=== PATIENT | male | born 1960 | race Caucasian/White ===

== ENCOUNTER 2020-07-13 11:48 | Inpatient (IN) | payer BC, OTHER, SELFPAY ==
[2020-07-13] MEDS ORDERED: NA CHLORIDE 0.9% 2,000 ML ONE (12:55)
[2020-07-13] MEDS ORDERED: FENTANYL CITR 100 MCG/2 ML ONE (13:08)
[2020-07-13] MEDS ORDERED: ONDANSETRON 4 MG/2 ML VIAL ONE (13:08)
--- NOTE | 2020-07-13 13:48 | RAD REPORT ---
EXAM DESCRIPTION: RAD - Chest Single View - 07/13/2020 1:30 pm CLINICAL HISTORY: AMS Chest pain. COMPARISON: No comparisons FINDINGS: Portable technique limits examination quality. The lungs are grossly clear. The heart is normal in size. No displaced fractures. IMPRESSION: No acute intrathoracic process suspected.
[2020-07-13 14:58] LABS: Absolute Lymphocytes (CBC) 0.3 K/uL (0.7-4.9); Basophils % 0.5 % (0-1.3); Hematocrit 49.3 % (39.6-49.0); Lymphocytes % 7.5 % (15.3-44.8); MPV 9.2 fL (7.6-11.3); RBC Red Blood Cell Count 6.33 M/uL (4.33-5.43)
[2020-07-13 15:04] LABS: Protime INR 1.6
[2020-07-13 15:34] LABS: ALT/SGPT 65 U/L (12-78); AST/SGOT 165 U/L (15-37); Albumin 3.4 g/dL (3.4-5.0); Alkaline Phosphatase 179 U/L (45-117); Amylase 112 U/L (25-115); BUN Blood Urea Nitrogen 90 mg/dL (7-18); Bilirubin Direct 0.3 mg/dL (0-0.2); Bilirubin Total 0.6 mg/dL (0.2-1.0); CKMB Creatine Kinase MB 71.7 ng/mL (0.3-3.6); Creatine Phosphokinase 4303 U/L (39-308); Glucose Level 96 mg/dL (74-106); Lipase 192 U/L (73-393); Potassium 4.5 mmol/L (3.5-5.1); Protein, Total 6.7 g/dL (6.4-8.2); Sodium Level 135 mmol/L (136-145); Troponin (Emerg Dept Use Only) < 0.02 ng/mL (0.0-0.045)
[2020-07-13 15:47] LABS: Bicarbonate 13 mmol/L (21-32)
[2020-07-13 16:07] LABS: Blood Morphology Comment NOT SEEN (NOT SEEN); Platelet Estimate DECR; White Blood Cell Scan OK (OK)
--- NOTE | 2020-07-13 16:47 | RAD REPORT ---
EXAM DESCRIPTION: CT - Head C Spine Cap Wo Con - 07/13/2020 4:22 pm CLINICAL HISTORY: Trauma, head and neck injury. Chest, abdomen and pelvis pain. Low back and abdominal pain;Pain COMPARISON: No comparisons TECHNIQUE: CT head without contrast. CT cervical spine without contrast with coronal and sagittal reformatted images. CT chest, abdomen and pelvis without contrast with coronal and sagittal reformatted images of the [facility]. All CT scans are performed using dose optimization technique as appropriate and may include automated exposure control or mA/KV adjustment according to patient size. FINDINGS: CT HEAD WITHOUT CONTRAST: No intracranial hemorrhage, hydrocephalus or extra-axial fluid collection. Diffuse brain atrophy is p resent. No areas of brain edema or midline shift. The paranasal sinuses and mastoids are essentially clear. The calvarium is intact. CT CERVICAL SPINE WITHOUT CONTRAST: No fracture or subluxation. Disc thinning with prominent posterior osteophyte is noted at C5-6 and C6 -7. The prevertebral soft tissues are normal in thickness. CT CHEST, ABDOMEN, PELVIS WITHOUT CONTRAST: NOTE: Lack of contrast is a significant limitation in the assessment of trauma related findings. Spec ifically, solid organ, vascular and bowel evaluation is significantly limited. Small peripherally located at opacities are present in the left apex, right upper lobe, posterior joselyn gula and lateral left lung base.No pneumothorax or pericardial/pleural fluid. Bilateral polycystic kidneys are seen with transplant kidney in the left lower quadrant. A few mildly fluid-filled small bowel loops are seen in the central abdomen. No bowel obstruction or pneumoperito neum. No concerning pelvic findings. No fractures. IMPRESSION: Small infiltrates in the lungs as detailed could be related to infection or aspiration. Mild nonspecific fluid-filled small bowel loops could represent mild enteritis.
[2020-07-13] MEDS ORDERED: NA CHLORIDE 0.9% 1,000 ML ONE (17:35)
--- NOTE | 2020-07-13 18:24 | ER ---
Nurse's Notes [facility] Name: Oj Jones Age: 60 yrs Sex: Male : 1960 Arrival Date: 07/13/2020 Time: 11:50 Bed 19 Private MD: Diagnosis: Rhabdomyolysis;Dehydration;Weakness;Low back pain;ESRD/KIdney Transplant Presentation: 07/13 11:56 Chief complaint: EMS states: Initially called for unresponsive, pt found in bathroom on floor with a pillow and blanket, was responsive when EMS arrived, neighbor who checks on him reports that he was found on floor in bathroom approx 2 days ago and has been there since, also reported that pt had bloody diarrhea 2 days ago, pt has generalized weakness and appears to be dehydrated w/ poor skin turgor noted, HR 55-62, BP 148/88, Spo2 89% RA, improved after placed on oxygen, hx of kidney transplant in 2001, no dialysis access noted, pt oriented to person, place, and month. Coronavirus screen: Client denies travel out of the [place] in the last 14 days. At this time, the client does not indicate any symptoms associated with coronavirus-19. Ebola Screen: No symptoms or risks identified at this time. Risk Assessment: Do you want to hurt yourself or someone else? Patient reports no desire to harm self or others. Onset of symptoms was July 13, 2020. 11:56 Method Of Arrival: EMS: [facility] 12:28 Initial Sepsis Screen: Does the patient meet any 2 criteria? No. Patient's initial ph sepsis screen is negative. Does the patient have a suspected source of infection? No. Patient's initial sepsis screen is negative. 12:28 Acuity: VIVIANA 2 ph Historical: - Allergies: 12:29 No Known Allergies; ph - PMHx: 12:23 kidney transplant; ph - Immunization history:: Adult Immunizations unknown. - Social history:: Smoking status: unknown. Screenin:05 Abuse screen: Denies threats or abuse. Denies injuries from another. Nutritional ph screening: No deficits noted. Tuberculosis screening: No symptoms or risk factors identified. Fall Risk Fall in past 12 months (25 points). No secondary diagnosis (0 pts). IV access (20 points). Ambulatory Aid- None/Bed Rest/Nurse Assist (0 pts). Gait- Weak (10 pts.). Mental Status- Oriented to own ability (0 pts). Assessment: 12:56 General: Appears in no apparent distress. uncomfortable, unkempt, emaciated, Behavior ph is calm, cooperative, appropriate for age, Denies fever. Pain: Complains of pain in low back area. Neuro: Level of Consciousness is awake, alert, obeys commands, Oriented to person, place, time, situation, Validation Software Facilitator are weak bilaterally Moves all extremities. Speech is normal, Reports weakness. Cardiovascular: Denies chest pain, shortness of breath, Capillary refill < 3 seconds in bilateral fingers. Respiratory: Airway is patent Respiratory effort is even, unlabored. GI: Abdomen is non-distended, Patient currently denies abdominal pain, Parent/caregiver reports the patient having bloody diarrhea 2 days ago. EENT: Oral mucosa is dry. Absence of teeth noted - all teeth appear to be absent. Derm: Skin is intact, with poor turgor Skin is dusky, Skin temperature is cool. Musculoskeletal: Circulation, motion, and sensation intact. Range of motion: intact in all extremities. 13:56 Reassessment: Patient appears in no apparent distress at this time. Patient and/or ph family updated on plan of care and expected duration. Pain level reassessed. Patient is alert, oriented x 3, equal unlabored respirations, skin warm/dry/pink. 15:51 Reassessment: Patient appears in no apparent distress at this time. Patient and/or ph family updated on plan of care and expected duration. Pain level reassessed. Patient is alert, oriented x 3, equal unlabored respirations, skin warm/dry/pink. 20:35 Reassessment: Patient and/or family updated on plan of care and expected duration. Pain ll2 level reassessed. 07/14 00:21 Reassessment: attempted to give report, advised i'd be called back. ll2 00:51 Reassessment: report given to REBECCA Heller. ll2 Vital Signs: 07/13 12:26 BP 110 / 72; Pulse 53; Resp 18; Temp 97.5(TE); Pulse Ox 100% on R/A; Weight 86.18 kg; ph Height 6 ft. 2 in. (187.96 cm); 13:00 BP 105 / 76; Pulse 51; Resp 18; Pulse Ox 100% on R/A; ph 13:55 BP 118 / 89; Pulse 55; Resp 18; Pulse Ox 95% on R/A; ph 15:52 BP 129 / 117; Pulse 70; Resp 18; Pulse Ox 95% on R/A; ph 19:15 BP 125 / 80; Pulse 71; Resp 16; Pulse Ox 94% on R/A; ll2 20:15 BP 122 / 76; Pulse 70; Resp 18; Pulse Ox 96% on R/A; ll2 21:20 BP 118 / 74; Pulse 65; Resp 17; Pulse Ox 95% on R/A; ll2 12:26 Body Mass Index 24.39 (86.18 kg, 187.96 cm) ph ED Course: 11:50 Patient arrived in ED. ph 11:52 Jonas Baker MD is Attending Physician. kdr 11:56 Yamila Gomez, RN is Primary Nurse. ph 12:04 Arm band placed on Patient placed in an exam room, on a stretcher, on oxygen, on ph court recording monitor, on pulse oximetry. 12:23 Patient has correct armband on for positive identification. Bed in low position. Call ph light in reach. Side rails up X 1. court recording monitor on. Pulse ox on. NIBP on. Door closed. Noise minimized. Warm blanket given. 12:28 Triage completed. ph 12:35 Missed attempt(s): 22 gauge in right wrist. Bleeding controlled, band aid applied, jp3 catheter tip intact. Patient maintains SpO2 saturation greater than 95% on room air. 12:50 Inserted saline lock: 22 gauge in right wrist, using aseptic technique. jp3 13:04 EKG done, by ED staff, reviewed by Jonas Baker MD. jp3 13:30 Chest Single View XRAY In Process Unspecified. EDMS 15:50 Notified ED physician of a critical lab result(s). Co2 13, CPK 4,303, and CKMB 71.7. ph 16:22 Head C Spine Cap Wo Con In Process Unspecified. EDMS 17:32 initiated a transfer with Zaida from the [facility] [place]. eb 17:51 Zaida from the [facility] called to decline the patient in transfer eb due to being at capacity. 18:22 Kyree Plata is Hospitalizing Provider. kdr 19:39 Primary Nurse role handed off by Yamila Gomez RN mw2 20:12 Rita Nevarez, REBECCA is Primary Nurse. ll2 07/14 00:51 No provider procedures requiring assistance completed. Patient admitted, IV remains in ll2 place. Administered Medications: 02 12:50 Drug: NS 0.9% (30 ml/kg) 30 ml/kg Route: IV; Rate: bolus; Site: right forearm; ph 19:15 Follow up: Response: No adverse reaction; IV Status: Completed infusion; IV Intake: ph 2000ml 13:00 Drug: Zofran (Ondansetron) 4 mg Route: IVP; Site: right forearm; ph 13:30 Follow up: Response: No adverse reaction ph 13:03 Drug: fentaNYL (PF) 25 mcg Route: IVP; Site: right forearm; ph 13:30 Follow up: Response: No adverse reaction; Pain is decreased ph 16:03 Drug: fentaNYL (PF) 25 mcg Route: IVP; Site: right forearm; ph 16:30 Follow up: Response: No adverse reaction; Pain is decreased ph 18:07 Drug: fentaNYL (PF) 50 mcg Route: IVP; Site: right forearm; ph 19:14 Follow up: Response: No adverse reaction; Pain is decreased ph 21:52 Drug: NS 0.9% 1000 ml Route: IV; Rate: 150 ml/hr; Site: right forearm; ll2 Intake: 19:15 IV: 2000ml; Total: 2000ml. ph Outcome: 18:23 Decision to Hospitalize by Provider. kdr 07/14 00:51 Admitted to Med/surg accompanied by tech, via stretcher, Report called to REBECCA Orozco ll2 Condition: stable Instructed on the need for admit. 01:15 Patient left the ED. ll2 Signatures: Dispatcher [employer] EDMS Jonas Baker MD MD [facility] Yamila Gomez RN RN Quentin Johnson mw2 Noemi Valladares Jacob 3 Rita Nevarez RN RN ll2 Corrections: (The following items were deleted from the chart) 00:19 02/12 19:30 Reassessment: No changes from previously documented assessment. Patient ll2 and/or family updated on plan of care and expected duration. Pain level reassessed. Patient is alert, oriented x 3, equal unlabored respirations, skin warm/dry/pink. ll2
--- NOTE | 2020-07-13 18:24 | EDPHYS ---
Physician Documentation [facility] Name: Oj Jones Age: 60 yrs Sex: Male : 1960 Arrival Date: 07/13/2020 Time: 11:50 Bed 19 Private MD: ED Physician Jonas Baker HPI: 07/13 18:33 This 60 yrs old Male presents to ER via EMS with complaints of Altered Mental kdr Status. 18:33 The patient presents with decreased mental status, decreased responsiveness. Onset: The kdr symptoms/episode began/occurred at an unknown time. The patient had been on the floor in the bathroom for more than two days. Possible causes: CVA or TIA, alcohol, head injury, low blood sugar, sepsis. Associated signs and symptoms: Pertinent positives: back pain, Pertinent negatives: abdominal pain, chest pain, combativeness, confusion, diaphoresis, diarrhea, dizziness, headache, lightheadedness. Current symptoms: In the emergency department the patient's symptoms are unchanged from the initial presentation. Patient's baseline: Neuro: alert and fully oriented, Motor: no deficits. The patient has not experienced similar symptoms in the past. The patient has not recently seen a physician. The patient's only c/o now is low back pain and dehydration. Historical: - Allergies: 12:29 No Known Allergies; ph - PMHx: 12:23 kidney transplant; ph - Immunization history:: Adult Immunizations unknown. - Social history:: Smoking status: unknown. ROS: 18:33 Constitutional: Negative for fever, chills, and weight loss, Eyes: Negative for injury, kdr pain, redness, and discharge, ENT: Negative for injury, pain, and discharge, Neck: Negative for injury, pain, and swelling, Cardiovascular: Negative for chest pain, palpitations, and edema, Respiratory: Negative for shortness of breath, cough, wheezing, and pleuritic chest pain, Abdomen/GI: Negative for abdominal pain, nausea, vomiting, diarrhea, and constipation, : Negative for injury, bleeding, discharge, and swelling, MS/Extremity: Negative for injury and deformity, Skin: Negative for injury, rash, and abdnormal discoloration, Neuro: Negative for headache, weakness, numbness, tingling, and seizure activity. Psych: Negative for depression, anxiety, suicide ideation, homicidal ideation, and hallucinations. Exam: 16:42 ECG was reviewed by the Attending Physician. kdr 18:33 Constitutional: This is a well developed, poorly nourished patient who is awake, kdr alert, and in mild acute distress. Head/Face: Normocephalic, atraumatic. eyes sunken Eyes: Pupils equal round and reactive to light, extra-ocular motions intact. Lids and lashes normal. Conjunctiva and sclera are non-icteric and not injected. Cornea within normal limits. Periorbital areas with no swelling, redness, or edema. Appears sunken Neck: Trachea midline, no thyromegaly or masses palpated, and no cervical lymphadenopathy. Supple, full range of motion without nuchal rigidity, or vertebral point tenderness. No Meningismus. Chest/axilla: Normal chest wall appearance and motion. Nontender with no deformity. No lesions are appreciated. Cardiovascular: Regular rate and rhythm with . No gallops, murmurs, or rubs. Normal PMI, no JVD. No pulse deficits. Respiratory: Lungs have equal breath sounds bilaterally, clear to auscultation. No rales, rhonchi or wheezes noted. No increased work of breathing, no retractions or nasal flaring. Abdomen/GI: Soft, non-tender, with normal bowel sounds. No distension or tympany. No guarding or rebound. No evidence of tenderness throughout. 18:33 Back: pain, that is mild, of the low back area, ROM is painful, normal spinal alignment noted, CVA tenderness, is absent. 18:33 Skin: Appearance: Color: rod, Temperature: warm, Moisture: dry, Generally poor condition of skin. Vital Signs: 12:26 BP 110 / 72; Pulse 53; Resp 18; Temp 97.5(TE); Pulse Ox 100% on R/A; Weight 86.18 kg; ph Height 6 ft. 2 in. (187.96 cm); 13:00 BP 105 / 76; Pulse 51; Resp 18; Pulse Ox 100% on R/A; ph 13:55 BP 118 / 89; Pulse 55; Resp 18; Pulse Ox 95% on R/A; ph 15:52 BP 129 / 117; Pulse 70; Resp 18; Pulse Ox 95% on R/A; ph 19:15 BP 125 / 80; Pulse 71; Resp 16; Pulse Ox 94% on R/A; ll2 20:15 BP 122 / 76; Pulse 70; Resp 18; Pulse Ox 96% on R/A; ll2 21:20 BP 118 / 74; Pulse 65; Resp 17; Pulse Ox 95% on R/A; ll2 12:26 Body Mass Index 24.39 (86.18 kg, 187.96 cm) ph MDM: 18:23 Patient medically screened. kdr 18:33 Data reviewed: vital signs, nurses notes, lab test result(s), EKG, radiologic studies. kdr Counseling: I had a detailed discussion with the patient and/or guardian regarding: the historical points, exam findings, and any diagnostic results supporting the discharge/admit diagnosis, lab results, radiology results, the need for further work-up and treatment in the hospital. 18:41 Physician consultation: Kyree Plata regarding admission, and will see patient kdr [facility] 07/13 12:12 Order name: Amylase, Serum; Complete Time: 16:08 kdr 07/13 12:12 Order name: Basic Metabolic Panel; Complete Time: 16:08 kdr 07/13 12:12 Order name: Blood Culture Adult (2) kdr 07/13 12:12 Order name: CBC with Diff; Complete Time: 16:08 kdr 07/13 12:12 Order name: Ckmb; Complete Time: 16:08 kdr 07/13 12:12 Order name: CPK; Complete Time: 16:08 kdr 07/13 12:12 Order name: Lactate; Complete Time: 16:08 kdr 07/13 12:12 Order name: LFT's; Complete Time: 16:08 kdr 07/13 12:12 Order name: Lipase; Complete Time: 16:08 kdr 07/13 12:12 Order name: Procalcitonin; Complete Time: 16:08 kdr 07/13 12:12 Order name: Protime (+inr); Complete Time: 16:08 kdr 07/13 12:12 Order name: Ptt, Activated; Complete Time: 16:08 kdr 07/13 12:12 Order name: Troponin (emerg Dept Use Only); Complete Time: 16:08 kdr 07/13 12:12 Order name: Urine Microscopic Only kdr 07/13 16:07 Order name: CBC Smear Scan; Complete Time: 16:08 EDMS 07/13 17:25 Order name: COVID-19 : Document "Date of Symptom Onset" if Symptomatic. [facility] 07/13 19:17 Order name: SARS-COV-2 RT PCR [facility] 07/13 23:03 Order name: Stool Culture [facility] 07/13 23:03 Order name: Sputum Gram Stain [facility] 07/13 23:04 Order name: Liver (Hepatic) Function [facility] 07/13 23:04 Order name: Thyroid Stimulating Hormone [facility] 07/13 23:04 Order name: UR CREAT [facility] 07/13 23:04 Order name: UR SODIUM [facility] 07/13 23:04 Order name: CBC with Automated Diff [facility] 07/13 23:04 Order name: CBC with Automated Diff [facility] 07/13 23:04 Order name: Comprehensive Metabolic Panel [facility] 07/13 23:04 Order name: Comprehensive Metabolic Panel [facility] 07/13 23:04 Order name: Creatine Phosphokinase [facility] 07/13 23:04 Order name: Creatine Phosphokinase [facility] 07/13 12:12 Order name: Chest Single View XRAY; Complete Time: 14:14 [facility] 07/13 12:12 Order name: Cardiac monitoring; Complete Time: 12:53 [facility] 07/13 12:12 Order name: EKG - Nurse/Tech; Complete Time: 12:59 [facility] 07/13 12:12 Order name: IV Saline Lock - Large Bore; Complete Time: 12:53 [facility] 07/13 12:12 Order name: Labs collected and sent; Complete Time: 17:15 [facility] 07/13 12:12 Order name: O2 Per Protocol; Complete Time: 12:29 [facility] 07/13 12:12 Order name: O2 Sat Monitoring; Complete Time: 12:29 [facility] 07/13 16:15 Order name: Head C Spine Cap Wo Con; Complete Time: 17:07 [facility] 07/13 23:04 Order name: CONS Pharmacy Consult [facility] 07/13 23:04 Order name: CONS Physician Consult [facility] 07/13 23:04 Order name: Full Liquid [facility] 07/13 23:04 Order name: Creatine Phosphokinase [facility] 07/13 23:04 Order name: Creatine Phosphokinase [facility] 07/13 23:04 Order name: Ova and Parasites EDMS EC:42 Rate is 51 beats/min. Rhythm is regular, Sinus bradycardia with No ectopy. QRS [place] is kdr Normal. NE interval is normal. QRS interval is normal. Clinical impression: NSR w/ Non-specific ST/T Changes. Administered Medications: 12:50 Drug: NS 0.9% (30 ml/kg) 30 ml/kg Route: IV; Rate: bolus; Site: right forearm; ph 19:15 Follow up: Response: No adverse reaction; IV Status: Completed infusion; IV Intake: ph 2000ml 13:00 Drug: Zofran (Ondansetron) 4 mg Route: IVP; Site: right forearm; ph 13:30 Follow up: Response: No adverse reaction ph 13:03 Drug: fentaNYL (PF) 25 mcg Route: IVP; Site: right forearm; ph 13:30 Follow up: Response: No adverse reaction; Pain is decreased ph 16:03 Drug: fentaNYL (PF) 25 mcg Route: IVP; Site: right forearm; ph 16:30 Follow up: Response: No adverse reaction; Pain is decreased ph 18:07 Drug: fentaNYL (PF) 50 mcg Route: IVP; Site: right forearm; ph 19:14 Follow up: Response: No adverse reaction; Pain is decreased ph 21:52 Drug: NS 0.9% 1000 ml Route: IV; Rate: 150 ml/hr; Site: right forearm; ll2 Disposition: 07/13/20 18:23 Hospitalization ordered by Kyree Plata for Inpatient Admission. Preliminary diagnosis are Rhabdomyolysis, Dehydration, Weakness, Low back pain, ESRD/KIdney Transplant. - Bed requested for Telemetry/MedSurg (Inpatient). - Status is Inpatient Admission. ll2 - Condition is Fair. - Problem is new. - Symptoms have improved. Signatures: Dispatcher [employer] EDMS Jackelyn López RN RN mw Woody, Diana, RN RN dw Rittger, Kevin, MD MD [facility] Yamila Gomez RN RN Rita Nevarez RN RN ll2 Corrections: (The following items were deleted from the chart) 16:15 12:13 Head C Spine CAP W Con+CT.RAD.BRZ ordered. EDMS EDMS 18:31 17:25 CORONAVIRUS ordered. EDMS EDMS 20:12 18:23 Hospitalization Ordered by Kyree Plata for Inpatient Admission. Preliminary dw diagnosis is Rhabdomyolysis; Dehydration; Weakness; Low back pain; ESRD/KIdney Transplant. Bed requested for Telemetry/MedSurg (Inpatient). Status is Inpatient Admission. Condition is Fair. Problem is new. Symptoms have improved. kdr 23:56 20:12 07/13/2020 18:23 Hospitalization Ordered by Kyree Plata for Inpatient mw Admission. Preliminary diagnosis is Rhabdomyolysis; Dehydration; Weakness; Low back pain; ESRD/KIdney Transplant. Bed requested for [facility] ER HOLD. Status is Inpatient Admission. Condition is Fair. Problem is new. Symptoms have improved. dw 07/14 01:15 07/13 23:56 07/13/2020 18:23 Hospitalization Ordered by Kyree Plata for Inpatient ll2 Admission. Preliminary diagnosis is Rhabdomyolysis; Dehydration; Weakness; Low back pain; ESRD/KIdney Transplant. Bed requested for Telemetry/MedSurg (Inpatient). Status is Inpatient Admission. Condition is Fair. Problem is new. Symptoms have improved. mw
--- NOTE | 2020-07-13 22:44 | P.HP ---
Certification for Inpatient With expected LOS: >2 Midnights Patient will require the following post-hospital care: None Practitioner: I am a practitioner with admitting privileges, knowledge of patient current condition, hospital course, and medical plan of care. Services: Services provided to patient in accordance with Admission requirements found in Title 42 Section 412.3 of the Code of Federal Regulations Patient History Date of Service: 07/14/20 Reason for admission: weakness History of Present Illness: 60 yr old male with HTN , ESRD s/p kidney transplant at [facility] since 2001 , admitted after having a fall and lying on the floor . On arrival he was noted with elevated creatinine of 4.5 , no prior creatinine in records . + CK above 4000. CT abdomen shows mild enteritis and small b/l lung infiltrates . Attempt made to transfer to but no bed . Patient is being admitted for acute renal failure . History limited by poor historian and slow in repsonse Home medications list reviewed: No - Past Medical/Surgical History Has patient received pneumonia vaccine in the past: No Diabetic: No -: Kidney transplant -: HTN Past Surgical History: Reviewed- Non-Contributory - Social History Smoking Status: Never smoker Place of Residence: Home Review of Systems 10-point ROS is otherwise unremarkable Physical Examination - Physical Exam General: In no apparent distress, Oriented x3, Disheveled, Other (drowsy) HEENT: Atraumatic, Normocephalic, PERRLA Neck: Supple, 2+ carotid pulse no bruit, JVD not distended Respiratory: Clear to auscultation bilaterally, Normal air movement Cardiovascular: Normal pulses, Regular rate/rhythm, Normal S1 S2 Capillary refill: <2 Seconds Gastrointestinal: Normal bowel sounds, Soft and benign, Non-distended, No tenderness Integumentary: No rashes, No breakdown Neurological: Normal strength at 5/5 x4 extr, Normal tone, Sensation intact, Cranial nerves 3-12 intact, Abnormal speech (slow and barely audible ) - Studies Laboratory Data (last 24 hrs) 07/13/20 14:45: PT 18.5 H, INR 1.60, APTT 39.8 H 07/13/20 14:45: WBC 4.20 L, Hgb 15.4, Hct 49.3 H, Plt Count 133 L 07/13/20 14:45: Sodium 135 L, Potassium 4.5, BUN 90 H, Creatinine 4.53 H, Glucose 96, Total Bilirubin 0.6, AST 165 H, ALT 65, Alkaline Phosphatase 179 H, Amylase 112, Lipase 192 Assessment and Plan - Problems (Diagnosis) (1) Enteritis Current Visit: Yes Status: Acute (2) Aspiration pneumonia Current Visit: Yes Status: Acute (3) ARF (acute renal failure) Current Visit: Yes Status: Acute (4) HTN (hypertension) Current Visit: Yes Status: Acute (5) Kidney transplant complication Current Visit: Yes Status: Acute (6) Polycystic kidney disease Current Visit: Yes Status: Acute (7) Metabolic acidosis Current Visit: Yes Status: Acute - Plan # Acute Rhabdomyolysis - due to fall -started aggressive IV hydration -follow CKD trend # ARF - may be due to ATN from rhabdomyolysis - obtain urine studies for fena - correct acidosis to alkalinize the urine -follow creatinine trend - renal eval in am # s/p Kidney Transplant - obtain and restart home meds and follow trough # Aspiration Pneumonitis /Enteritis -obtain stool for O/P - start empirical abx with flagyl and levaquin -follow blood cx # Advance directive - full code - Advance Directives Does patient have a Living Will: No Does patient have a Durable POA for Healthcare: No
[2020-07-13] MEDS ORDERED: MORPHINE 2 MG/ML SYR IV PRN (22:55)
[2020-07-13] MEDS ORDERED: ACETAMINOPHEN 500 MG TAB PO PRN (22:55)
[2020-07-13] MEDS ORDERED: ALBUTEROL 2.5 MG/3 ML NEB SOL NEB PRN (22:55)
[2020-07-13] MEDS ORDERED: LORAZEPAM 0.5 MG TABLET PO PRN (22:59)
[2020-07-13] MEDS ORDERED: HYDRALAZINE HCL 20 MG/ML VIAL IV PRN (22:59)
[2020-07-13] MEDS: D5W 1,000 ML with NA BICARB 8.4% 150 MEQ IV SCH ×2 (23:00)
[2020-07-14 02:02] VITALS: BMI 24.3
[2020-07-14] MEDS: METRONIDAZOLE 250mg IVPB 250 MG/50 ML BAG IV SCH ×3 (02:33→17:12)
[2020-07-14] MEDS ORDERED: METRONIDAZOLE 500mg IVPB 500 MG/100 ML BAG IV ONE (02:42)
[2020-07-14] MEDS ORDERED: NA CHLORIDE 0.9% 1,000 ML IV ONE ×2 (03:04→05:10)
[2020-07-14] MEDS ORDERED: D50W 25 GM/50 ML SYRINGE IV ONE (03:57)
[2020-07-14] MEDS ORDERED: NA CHLORIDE 0.9% 1,000 ML ONE (05:17)
[2020-07-14] MEDS ORDERED: SODIUM BICARB 50 MEQ/50ML VIAL ONE (05:23)
[2020-07-14] MEDS ORDERED: D5W 1,000 ML IV ONE (05:24)
[2020-07-14] MEDS: D5W 1,000 ML with NA BICARB 8.4% 150 MEQ IV SCH ×6 (05:28→17:12)
[2020-07-14 06:13] LABS: Absolute Lymphocytes (CBC) 0.5 K/uL (0.7-4.9); Basophils % 0.8 % (0-1.3); Hematocrit 38.8 % (39.6-49.0); Lymphocytes % 11.9 % (15.3-44.8); MPV 9.4 fL (7.6-11.3); RBC Red Blood Cell Count 5.01 M/uL (4.33-5.43)
[2020-07-14] MEDS: MIDODRINE HCL 5 MG TABLET PO SCH ×4 (06:22→20:22)
[2020-07-14 06:51] LABS: Albumin 2.5 g/dL (3.4-5.0); Bilirubin Direct 0.2 mg/dL (0-0.2); Bilirubin Total 0.4 mg/dL (0.2-1.0); Potassium 4.4 mmol/L (3.5-5.1); Protein, Total 4.7 g/dL (6.4-8.2); Thyroid Stimulating Hormone 0.637 uIU/mL (0.360-3.740)
[2020-07-14] MEDS ORDERED: NA CHLORIDE 0.9% 250 ML IV ONE (07:53)
[2020-07-14] MEDS ORDERED: NA CHLORIDE 0.9% 250 ML ONE (08:05)
[2020-07-14] MEDS ORDERED: CEFTRIAXONE 1 GM/NS 50 ML 1 GM/50 ML BAG IV SCH (09:00)
[2020-07-14] MEDS ORDERED: CEFTRIAXONE/SWI 1gm 1 GM/10 ML SYR IV SCH (09:00)
[2020-07-14] MEDS: FAMOTIDINE 20 MG TAB PO SCH (09:00)
[2020-07-14] MEDS: HEPARIN 5000 UNIT/ML 1 ML VIAL SQ SCH ×2 (09:47→20:22)
[2020-07-14] MEDS ORDERED: INFLUENZA VACCINE (for 3y+) 0.5 ML DOSE IMVAC ONE (12:00)
--- NOTE | 2020-07-14 12:17 | P.PN ---
Subjective Date of Service: 07/14/20 Chief Complaint: weakness Patient is very sick with hypotension, metabolic acidosis, severe RAMEZ, rhabdomyolysis. Metabolic acidosis has gotten worse since yesterday. Patient given a lot of IV normal saline bolus, after 4 L. He is still borderline hypotensive. Physical Examination - Vital Signs Temperature: 96.9 F Blood Pressure: 90/57 Pulse: 71 Respirations: 20 Pulse Ox (%): 98 - Physical Exam General: Oriented x2, Other (Lethargic) HEENT: Mucous membr. moist/pink Neck: Supple, JVD not distended Respiratory: Clear to auscultation bilaterally, Normal air movement Cardiovascular: No edema, Regular rate/rhythm, Normal S1 S2 Capillary refill: <2 Seconds Gastrointestinal: Normal bowel sounds, Soft and benign, Non-distended, No tenderness Musculoskeletal: No swelling, No tenderness Integumentary: Rash(es) (Mild macular rashes on bilateral thighs.) Neurological: Other (Lethargic, moves all extremities spontaneously.) - Studies Laboratory Data (last 24 hrs) 07/13/20 14:45: PT 18.5 H, INR 1.60, APTT 39.8 H 07/13/20 14:45: WBC 4.20 L, Hgb 15.4, Hct 49.3 H, Plt Count 133 L 07/13/20 14:45: Sodium 135 L, Potassium 4.5, BUN 90 H, Creatinine 4.53 H, Glucose 96, Total Bilirubin 0.6, AST 165 H, ALT 65, Alkaline Phosphatase 179 H, Amylase 112, Lipase 192 Microbiology Data (last 24 hrs): 07/13/20 14:45 Blood - Blood Anaerobic Blood Culture - Final 07/13/20 14:45 Blood - Blood Anaerobic Blood Culture - Final Assessment And Plan - Current Problems (Diagnosis) (1) Hypovolemic shock Current Visit: Yes Status: Acute (2) ARF (acute renal failure) Current Visit: Yes Status: Acute (3) Enteritis Current Visit: Yes Status: Acute (4) Kidney transplant complication Current Visit: Yes Status: Acute (5) Metabolic acidosis Current Visit: Yes Status: Acute (6) Aspiration pneumonia Current Visit: Yes Status: Acute (7) Polycystic kidney disease Current Visit: Yes Status: Acute - Plan Continue aggressive IV hydration with D5W with bicarb drip. Monitor renal function frequently, q.6 hrs. Nephrology to see patient. Continue IV antibiotics-Rocephin and Flagyl to cover aspiration pneumonia and enteritis. Collect and validate his home medications for med reconciliation. IV normal saline bolus p.r.n. for hypotension. Obtain UA and microscopy. Midodrine p.r.n. for hypotension. Check echocardiogram.
[2020-07-14 13:24] LABS: Potassium 3.8 mmol/L (3.5-5.1)
[2020-07-14] MEDS ORDERED: CEFEPIME 1 GM/10 ML SYR IV SCH (15:00)
[2020-07-14] MEDS: CEFEPIME/SWI 1gm 10 ML IV SCH (15:33)
[2020-07-14] MEDS: HYDROCORTISONE SUC 100 MG INJ IV SCH ×2 (15:33→15:51)
--- NOTE | 2020-07-14 19:23 | P.CNS ---
Date of Consult: 07/14/20 Reason for Consult: RAMEZ, Acidosis Chief Complaint: weakness History of Present Illness: Pt is confused and unable to provide HX, HX obtained from chart 60 yr old male with HTN , of Polycystic kidney disease , renal failure S/P Kidney transplant in 2002 on Cellcept and prograf Pt found on the floor covered with urine and stool On admission Pt was hypotensive Cr 4.5, bicarb 9, Abd cT no hydro nephrosis ROS Unable to provide Physical exam General: confused , awake CHEST; CTAB, no wheezes or rales HEART : RRR. Normal S1,2 no murmur or rub Abd: soft, Nt Ext: no edema Skin : No rash A/P RAMEZ Possibly due to prerenal azotemia from dehydration /- ischemic ATN Cont IVF Abdominal CT: no hydro Will order transplanted Kidney US Renal dose meds I/O, will order Riddle Avoid NSAI and contrast Will hold on renal replacement therapy at this time Kidney transplant Will hold on tacrolimus and cellcept Will order tacrolimus level Will start on Hydrocortisone Rhabomyolysis Improving Cont IVF HAGMA Cont sodium bicarbonate Sepsis F/U cultures Will change Rocephin to Cefepime Diarrhea Cont IVF F/U stool studies Cont Flagyl Total time spent 65 min Allergies No Known Allergies Allergy (Unverified 07/14/20 01:54) Home Medications: Unobtainable 07/14/20 - Past Medical/Surgical History Diabetic: No -: Kidney transplant -: HTN - Social History Smoking Status: Unknown if ever smoked Alcohol use: No CD- Drugs: No Caffeine use: Yes Place of Residence: Home Physical Examination Temp Pulse Resp BP Pulse Ox 98.3 F 73 20 110/69 97 07/14/20 16:00 07/14/20 16:00 07/14/20 16:00 07/14/20 16:00 07/14/20 16:00
[2020-07-14 19:52] LABS: Potassium 4.3 mmol/L (3.5-5.1)
[2020-07-15] MEDS: METRONIDAZOLE 250mg IVPB 250 MG/50 ML BAG IV SCH ×3 (00:20→17:11)
[2020-07-15] MEDS: HYDROCORTISONE SUC 100 MG INJ IV SCH ×3 (00:20→17:12)
[2020-07-15] MEDS: D5W 1,000 ML with NA BICARB 8.4% 150 MEQ IV SCH ×4 (05:18→17:11)
[2020-07-15 05:24] LABS: Urine Appearance CLOUDY; Urine Blood 3+ (NEG); Urine Color DK YELLOW; Urine Glucose NEGATIVE (NEG); Urine Protein 2+ (NEG); Urine Urobilinogen 0.2 mg/dL (0.2-1.0); Urine pH 5.5 (5.0-7.0)
[2020-07-15 06:33] LABS: Absolute Lymphocytes (CBC) 0.5 K/uL (0.7-4.9); Basophils % 0.6 % (0-1.3); Hematocrit 41.3 % (39.6-49.0); Lymphocytes % 7.4 % (15.3-44.8); MPV 8.9 fL (7.6-11.3); RBC Red Blood Cell Count 5.46 M/uL (4.33-5.43)
[2020-07-15 06:46] LABS: Urine Microscopic Reflex ORDER UMIC
[2020-07-15 06:49] LABS: Urine Bilirubin NEGATIVE (NEG)
[2020-07-15 07:01] LABS: Urine Bacteria 20-50 /HPF (NONE SEEN); Urine Mucus 1+ /HPF (NONE SEEN); Urine RBC TNTC /HPF (NONE SEEN); Urine Sperm PRESENT (NONE SEEN)
[2020-07-15 07:14] LABS: Potassium 3.6 mmol/L (3.5-5.1)
[2020-07-15] MEDS: MIDODRINE HCL 5 MG TABLET PO SCH (08:26)
[2020-07-15] MEDS: FAMOTIDINE 20 MG TAB PO SCH (08:26)
[2020-07-15] MEDS: HEPARIN 5000 UNIT/ML 1 ML VIAL SQ SCH ×2 (08:26→20:29)
--- NOTE | 2020-07-15 09:48 | P.PN ---
Subjective Date of Service: 07/15/20 Chief Complaint: weakness 60 yr old male with HTN , of Polycystic kidney disease , renal failure S/P Kidney transplant in 2002 on Cellcept and prograf Pt found on the floor covered with urine and stool On admission Pt was hypotensive Cr 4.5, bicarb 9, Abd cT no hydro nephrosis today feels better UO improving Cr and bicarb level improving, will reduce IVF rate and consider to switch fluids to Ringer lactate tomorrow F/U tacrolimus level will consider to restart cellcept next week , once pt is more stable and dse verified will dc midodrine Physical exam General: Awake, NAD CHEST; CTAB, no wheezes or rales HEART : RRR. Normal S1,2 no murmur or rub Abd: soft, Nt Ext: no edema Skin : No rash A/P RAMEZ Possibly due to prerenal azotemia from dehydration +/- ischemic ATN Cont IVF , will reduce rate Abdominal CT: no hydro F/U transplanted Kidney US Renal dose meds I/O, Avoid NSAID and contrast Kidney transplant Hold on tacrolimus and cellcept F/U tacrolimus level Cont Hydrocortisone Rhabomyolysis Improving Cont IVF HAGMA due to Diarrhea and RAMEZ Cont sodium bicarbonate drip, joaquin lreduce rate will start PO sodium bicarb Sepsis F/U cultures Will change Rocephin to Cefepime Diarrhea Cont IVF F/U stool studies Cont Flagyl Total time spent 45 min Physical Examination - Vital Signs Temperature: 98.1 F Blood Pressure: 137/84 Pulse: 76 Respirations: 18 Pulse Ox (%): 100 - Studies Microbiology Data (last 24 hrs): 07/13/20 14:45 Blood - Blood Anaerobic Blood Culture - Final 07/13/20 14:45 Blood - Blood Anaerobic Blood Culture - Final
--- NOTE | 2020-07-15 10:57 | RAD REPORT ---
EXAM DESCRIPTION: US - Renal Ultrasound-Complete - 07/14/2020 10:03 pm CLINICAL HISTORY: Acute renal insufficiency COMPARISON: None FINDINGS: The right kidney measures 15 cm. It contains multiple cysts. There is little normal appear ing parenchyma The left kidney measures 17 cm. It also contains multiple cysts. There is little normal appearing par enchyma. Largest cyst measures 7 centimeters No hydronephrosis visualized. Transplant kidney within the left pelvis measures 11 centimeters with a normal echotexture. No hydron ephrosis. Bladder is decompressed and poorly visualized IMPRESSION: Polycystic kidney disease Unremarkable evaluation of the transplant kidney
--- NOTE | 2020-07-15 12:42 | P.PN ---
Subjective Date of Service: 07/15/20 Chief Complaint: weakness Patient is doing better today. He is more alert and interactive. Blood pressure has stabilized Metabolic acidosis has significantly improved. Physical Examination - Vital Signs Temperature: 98.1 F Blood Pressure: 137/84 Pulse: 76 Respirations: 18 Pulse Ox (%): 100 - Physical Exam General: Alert, In no apparent distress, Oriented x3 HEENT: Mucous membr. moist/pink, EOMI, Sclerae nonicteric Neck: Supple, JVD not distended Respiratory: Clear to auscultation bilaterally, Normal air movement Cardiovascular: No edema, Regular rate/rhythm, Normal S1 S2 Gastrointestinal: Soft and benign, Non-distended, No tenderness Musculoskeletal: No swelling Neurological: Normal strength at 5/5 x4 extr, Cranial nerves 3-12 intact - Studies Microbiology Data (last 24 hrs): 07/13/20 14:45 Blood - Blood Anaerobic Blood Culture - Final 07/13/20 14:45 Blood - Blood Anaerobic Blood Culture - Final Assessment And Plan - Current Problems (Diagnosis) (1) Hypovolemic shock Current Visit: Yes Status: Acute (2) ARF (acute renal failure) Current Visit: Yes Status: Acute (3) Enteritis Current Visit: Yes Status: Acute (4) Kidney transplant complication Current Visit: Yes Status: Acute (5) Metabolic acidosis Current Visit: Yes Status: Acute (6) Aspiration pneumonia Current Visit: Yes Status: Acute (7) Polycystic kidney disease Current Visit: Yes Status: Acute - Plan Patient receiving IV hydration with D5W with bicarb. Oral bicarbonate replacement per nephrology. Monitor renal function. Continue IV antibiotics-cefepime and Flagyl to cover aspiration pneumonia and enteritis. IV normal saline bolus p.r.n. for hypotension. UA suggest the presence of UTI. Follow urine culture. Discontinue midodrine as patient is currently hypertensive. Nephrology input appreciated. Advanced diet as tolerated.
[2020-07-15] MEDS: CEFEPIME/SWI 1gm 10 ML IV SCH (14:35)
[2020-07-15] MEDS: SODIUM BICARB 325 MG TAB PO SCH (20:29)
[2020-07-15] MEDS: ENSURE ENLIVE 237 ML CAN PO SCH (20:29)
[2020-07-16] MEDS: METRONIDAZOLE 250mg IVPB 250 MG/50 ML BAG IV SCH ×3 (00:19→16:00)
[2020-07-16] MEDS: HYDROCORTISONE SUC 100 MG INJ IV SCH ×3 (00:19→16:02)
[2020-07-16 05:53] LABS: Absolute Lymphocytes (CBC) 0.3 K/uL (0.7-4.9); Basophils % 0.4 % (0-1.3); Hematocrit 35.6 % (39.6-49.0); Lymphocytes % 5.7 % (15.3-44.8); MPV 8.3 fL (7.6-11.3); RBC Red Blood Cell Count 4.73 M/uL (4.33-5.43)
[2020-07-16 06:31] LABS: Blood Morphology Comment NOT SEEN (NOT SEEN); Platelet Estimate DECR
[2020-07-16 06:32] LABS: Potassium 2.6 mmol/L (3.5-5.1)
[2020-07-16] MEDS ORDERED: POTASSIUM CL 40 MEQ in NA CHLORIDE 0.9% 500 ML IV SCH ×2 (07:00→17:00)
[2020-07-16] MEDS: D5W 1,000 ML with NA BICARB 8.4% 150 MEQ IV SCH ×2 (07:20)
[2020-07-16] MEDS: FAMOTIDINE 20 MG TAB PO SCH ×2 (08:44→20:06)
[2020-07-16] MEDS: ENSURE ENLIVE 237 ML CAN PO SCH ×2 (08:44→20:08)
[2020-07-16] MEDS: SODIUM BICARB 325 MG TAB PO SCH ×2 (08:44→22:02)
[2020-07-16] MEDS: HEPARIN 5000 UNIT/ML 1 ML VIAL SQ SCH ×2 (08:45→20:07)
[2020-07-16] MEDS ORDERED: COLCHICINE 0.6 MG TAB PO PRN (09:19)
[2020-07-16] MEDS: CEFEPIME/SWI 1gm 10 ML IV SCH (14:04)
--- NOTE | 2020-07-16 14:28 | P.PN ---
Subjective Date of Service: 07/16/20 Chief Complaint: weakness Patient is doing better today. He is more alert and interactive. He is still having watery diarrhea. Renal function has significantly improved. Metabolic acidosis resolved. Physical Examination - Vital Signs Temperature: 97.9 F Blood Pressure: 136/76 Pulse: 76 Respirations: 18 Pulse Ox (%): 96 - Physical Exam General: Alert, In no apparent distress, Oriented x3 HEENT: Mucous membr. moist/pink Neck: JVD not distended Respiratory: Clear to auscultation bilaterally, Normal air movement Cardiovascular: No edema, Regular rate/rhythm, Normal S1 S2 Gastrointestinal: Soft and benign, Non-distended, No tenderness Musculoskeletal: No swelling Neurological: Other (No focal motor deficit) Assessment And Plan - Current Problems (Diagnosis) (1) Hypovolemic shock Current Visit: Yes Status: Resolved (2) ARF (acute renal failure) Current Visit: Yes Status: Acute (3) Enteritis Current Visit: Yes Status: Acute (4) Kidney transplant complication Current Visit: Yes Status: Acute (5) Metabolic acidosis Current Visit: Yes Status: Resolved (6) Aspiration pneumonia Current Visit: Yes Status: Acute (7) Polycystic kidney disease Current Visit: Yes Status: Acute - Plan Continue IV hydration. Oral bicarbonate replacement per nephrology. Monitor renal function. Continue IV antibiotics-cefepime and Flagyl to cover aspiration pneumonia and enteritis. Stool for C. diff is pending. May need to check Cryptosporidium given that patient is on immunosuppressive medications UA suggest the presence of UTI. Urine culture: No growth. Nephrology is following Diet as tolerated.
[2020-07-16] MEDS ORDERED: ALBUTEROL 2.5 MG/3 ML NEB SOL NEB PRN (15:00)
[2020-07-16] MEDS ORDERED: NA CHLORIDE 0.9% 1,000 ML IV SCH (15:00)
[2020-07-16] MEDS: Ringers Lactate 1,000 ML IV SCH (18:46)
--- NOTE | 2020-07-16 18:48 | P.PN ---
Date of Service: 07/16/20 Nursing staff report patient developed atrial fibrillation this evening. Plan; Optimize potassium. Continue to replete potassium level with a potassium negative greater than 4. IV normal saline change to ringers lactate which contains more potassium. Check magnesium and phosphorus level Check echocardiogram. Cardiology consult. Anticoagulation per Cardiology.
[2020-07-16] MEDS ORDERED: METOPROLOL TARTRATE 5 MG/5 ML INJ IV STA (19:22)
[2020-07-16 19:44] LABS: Phosphorus 1.1 mg/dL (2.5-4.9)
[2020-07-16] MEDS ORDERED: METOPROLOL TARTRATE 5 MG/5 ML INJ IV ONE (19:45)
[2020-07-16 19:47] LABS: Magnesium 1.2 mg/dL (1.8-2.4)
[2020-07-16] MEDS ORDERED: Magnesium Sulfate 2gm IVPB 2 G/50 ML BAG IV ONE (19:52)
[2020-07-16] MEDS ORDERED: MAGNESIUM SULFATE 1 gm IVPB 2 GM/200 ML BAG IV ONE (20:14)
[2020-07-16] MEDS: POTASS/SODIUM PHOSPHATE 1 PKT POWD.PACK PO SCH ×3 (20:19→22:03)
[2020-07-16] MEDS: MAGNESIUM SULFATE 1 gm IVPB 1 GM/100 ML BAG IV SCH ×2 (20:22→21:06)
[2020-07-16] MEDS: TACROLIMUS 0.5 MG PO SCH (20:24)
[2020-07-16] MEDS ORDERED: POTASS/SODIUM PHOSPHATE 1 PKT POWD.PACK ONE (20:29)
[2020-07-16] MEDS: CLOTRIMAZOLE 10 MG TROCHE PO SCH (21:13)
[2020-07-16] MEDS: METOPROLOL TAR 50 MG TAB PO SCH (21:13)
[2020-07-17] MEDS: HYDROCORTISONE SUC 100 MG INJ IV SCH ×3 (00:49→17:00)
[2020-07-17] MEDS: METRONIDAZOLE 250mg IVPB 250 MG/50 ML BAG IV SCH ×3 (00:49→17:00)
[2020-07-17] MEDS: Ringers Lactate 1,000 ML IV SCH ×2 (08:20→21:40)
[2020-07-17] MEDS: METOPROLOL TAR 50 MG TAB PO SCH ×2 (08:43→22:14)
[2020-07-17] MEDS: TACROLIMUS 0.5 MG PO SCH ×2 (09:00→21:00)
[2020-07-17] MEDS: SODIUM BICARB 325 MG TAB PO SCH ×2 (09:00→22:21)
[2020-07-17] MEDS: HEPARIN 5000 UNIT/ML 1 ML VIAL SQ SCH ×2 (09:00→21:00)
[2020-07-17] MEDS: ENSURE ENLIVE 237 ML CAN PO SCH ×2 (09:00→21:00)
[2020-07-17] MEDS: ATORVASTATIN 20 MG TAB PO SCH (09:00)
[2020-07-17] MEDS: CLOTRIMAZOLE 10 MG TROCHE PO SCH ×4 (09:00→22:55)
[2020-07-17 13:01] LABS: C.diff Antigen/Toxin Ag neg : Tox neg (NEG : NEG)
[2020-07-17] MEDS: CEFEPIME/SWI 1gm 10 ML IV SCH (14:30)
--- NOTE | 2020-07-17 18:01 | P.PN ---
Subjective Date of Service: 07/17/20 Chief Complaint: weakness Subjective: Other (overnight with some agitation / paranoid. called police because he believes nurses were scamming him of his money) Review of Systems 10-point ROS is otherwise unremarkable Physical Examination - Vital Signs Temperature: 97.7 F Blood Pressure: 109/70 Pulse: 88 Respirations: 20 Pulse Ox (%): 98 Assessment & Plan Physician Review Additional Text: Physical Exam General: Alert, In no apparent distress, Oriented x3 HEENT: Mucous membr. moist/pink Respiratory: Clear to auscultation bilaterally, Normal air movement Cardiovascular: No edema, Regular rate/rhythm, Normal S1 S2 Gastrointestinal: Soft and benign, Non-distended, No tenderness Musculoskeletal: No swelling Neurological: AAOx3, confused, paranoid Problem List Hypovolemic shock ARF (acute renal failure) Enteritis Kidney transplant complication Metabolic acidosis Aspiration pneumonia polycystic kidney disease Continue IV hydration. Oral bicarbonate replacement per nephrology. Monitor renal function. Continue IV antibiotics-cefepime and Flagyl to cover aspiration pneumonia and enteritis. Stool for C. diff is pending. UA suggest the presence of UTI. Urine culture: No growth. family friend states patient is not at baseline Nephrology is following Diet as tolerated. Time Spent Managing Pts Care (In Minutes): 35
[2020-07-17] MEDS: FAMOTIDINE 20 MG TAB PO SCH (22:21)
[2020-07-18] MEDS: HYDROCORTISONE SUC 100 MG INJ IV SCH ×3 (00:22→17:00)
[2020-07-18] MEDS: METRONIDAZOLE 250mg IVPB 250 MG/50 ML BAG IV SCH ×3 (00:28→17:00)
[2020-07-18] MEDS: ENSURE ENLIVE 237 ML CAN PO SCH ×2 (09:00→21:00)
[2020-07-18] MEDS: SODIUM BICARB 325 MG TAB PO SCH ×2 (09:00→21:00)
[2020-07-18] MEDS: HEPARIN 5000 UNIT/ML 1 ML VIAL SQ SCH ×2 (09:00→21:00)
[2020-07-18] MEDS: CLOTRIMAZOLE 10 MG TROCHE PO SCH ×4 (09:00→21:00)
[2020-07-18] MEDS: ATORVASTATIN 20 MG TAB PO SCH (09:00)
[2020-07-18] MEDS: TACROLIMUS 0.5 MG PO SCH ×2 (09:00→21:00)
[2020-07-18] MEDS: Ringers Lactate 1,000 ML IV SCH ×2 (11:00→15:32)
[2020-07-18] MEDS: METOPROLOL TAR 50 MG TAB PO SCH ×2 (11:14→21:00)
[2020-07-18 12:41] LABS: Absolute Lymphocytes (CBC) 0.5 K/uL (0.7-4.9); Basophils % 0.5 % (0-1.3); Hematocrit 38.3 % (39.6-49.0); Lymphocytes % 8.8 % (15.3-44.8); MPV 8.9 fL (7.6-11.3); RBC Red Blood Cell Count 4.97 M/uL (4.33-5.43)
[2020-07-18 13:11] LABS: Bilirubin Total 1.5 mg/dL (0.2-1.0); Magnesium 1.3 mg/dL (1.8-2.4); Phosphorus 1.5 mg/dL (2.5-4.9); Protein, Total 5.3 g/dL (6.4-8.2)
[2020-07-18 13:13] LABS: Potassium 2.9 mmol/L (3.5-5.1)
[2020-07-18 13:26] LABS: Blood Morphology Comment NOT SEEN (NOT SEEN); Platelet Estimate DECR; White Blood Cell Scan OK (OK)
[2020-07-18] MEDS ORDERED: Magnesium Sulfate 2gm IVPB 2 G/50 ML BAG IV ONE (13:43)
[2020-07-18] MEDS ORDERED: MAGNESIUM SULFATE 1 gm IVPB 1 GM/100 ML BAG IV ONE (13:52)
[2020-07-18] MEDS: CEFEPIME/SWI 1gm 10 ML IV SCH (14:30)
[2020-07-18] MEDS ORDERED: POTASSIUM PHOS 20 MEQ in NA CHLORIDE 0.9% 250 ML IV ONE (15:31)
--- NOTE | 2020-07-18 16:10 | PN ---
Date of Progress Note: 07/18/2020 Subjective: The patient had kidney transplant, was admitted with acute kidney injury, severe electrolyte imbalance with depleted potassium and magnesium. The patient had also rhabdo and UTI. The patient was started on aggressive hydration. According to the patient, his kidney functions started almost back to baseline. Physical Examination: Vital Signs: Blood pressure 130/70, pulse of 90, afebrile. Chest: Clear to auscultation. Heart: S1, S2. Regular. Abdomen: Soft, nontender. Extremity: No edema. Neuro: Alert and oriented. No focality. Laboratory Data: WBC 5.9, H and H 12.3/38.3, platelets 93. Sodium 144, potassium 2.9, bicarb 29, BUN 24, creatinine 1.3, calcium 7.4, phosphorus 1.5, magnesium 1.3, CK 1367. Current Medications: Cefepime, metronidazole, atorvastatin, metoprolol, lorazepam, sodium bicarbonate, LR, colchicine. Assessment And Plan: 1. Acute kidney injury on chronic kidney disease with transplanted kidney, on the recovery, secondary to prerenal, superimposed with rhabdomyolysis. I am going to continue the patient hydration and we will monitor the patient. Given the history of kidney transplant, I am going to go ahead and resume his transplant medications including the mycophenolate 500 b.i.d. and Prograf 0.5 b.i.d., discontinue colchicine, and we will monitor the patient. 2. Hypertension, controlled, optimal. 3. Acidosis secondary to GI loss. I agree with sodium bicarb. Continue LR. 4. Hypokalemia, hypomagnesemia, hypophosphatemia. 5. Kidney transplant. We will resume Prograf and CellCept. 6. Urinary tract infection. Continue current antibiotics. 7. Clostridium difficile colitis, possible contribution also with colchicine. Discontinue colchicine. We will follow up. 8. Altered mental status as by primary. 9. Rhabdomyolysis. Continue aggressive hydration, increase IV fluid. Time spent discussing with the patient, examining the patient, exam [id number], placing order, discussing with staff and other consulting include including Cardiology and Primary 45 minutes. RYAN Voice ID: [id number] Report ID: [id number] [facility] HOSPITALFelisha
[2020-07-18] MEDS ORDERED: KCL 20 MEQ/100 mL IVPB 20 MEQ/100 ML BAG IV SCH (17:00)
--- NOTE | 2020-07-18 17:02 | P.PN ---
Subjective Date of Service: 07/18/20 Chief Complaint: weakness Subjective: No new changes (patient feels about the same, refused meds / labs past 24hrs. ex- here, able to talk to him and he is now agreeable to some labs / medications. still with paranoia) Review of Systems 10-point ROS is otherwise unremarkable Physical Examination - Vital Signs Temperature: 100.2 F Blood Pressure: 144/71 Pulse: 98 Respirations: 18 Pulse Ox (%): 96 - Studies Microbiology Data (last 24 hrs): 07/13/20 14:45 Blood - Blood Aerobic Blood Culture - Final No growth in 5 days. 07/13/20 14:45 Blood - Blood Anaerobic Blood Culture - Final 07/13/20 14:45 Blood - Blood Aerobic Blood Culture - Final No growth in 5 days. 07/13/20 14:45 Blood - Blood Anaerobic Blood Culture - Final Assessment & Plan Physician Review Additional Text: Physical Exam General: Alert, Oriented x3 Respiratory: Clear to auscultation bilaterally, slight diminished at baseline Cardiovascular: No edema, Regular rate/rhythm, Normal S1 S2 Gastrointestinal: Soft and benign, Non-distended, No tenderness Musculoskeletal: No swelling Neurological: AAOx3, mild confusion, paranoid - believes i am not a doctor, not trusting medicine team, believes cameras are in the room, etc Problem List Hypovolemic shock ARF (acute renal failure) Enteritis Kidney transplant complication Metabolic acidosis Aspiration pneumonia polycystic kidney disease IV hydration - pt refused, stopped. Oral bicarbonate replacement per nephrolog y. Continue IV antibiotics- cefepime and Flagyl to cover aspiration pneumonia and enteritis. diarrhea improved / resolved UA suggest the presence of UTI. Urine culture: No growth. family friend states patient is not at baseline, ex- agrees. he does seem to have h/o skepticism / ?paranoid. ex- of 20yrs, states no significant psych history she is aware of Nephrology following, renal function improving Diet as tolerated. labs today, restart antibiotics, will likely need electrolyte replacement pt/ot to eval dispo: anticipate dc in ~48hrs, refused treatment for ~30hrs, now more amenable to treatment possible dc home, pending PT/OT, may be too weak Time Spent Managing Pts Care (In Minutes): 35
[2020-07-18] MEDS: KCL 20 MEQ/100 mL IVPB 20 MEQ/100 ML BAG IV SCH ×2 (19:00→21:00)
[2020-07-18] MEDS: FAMOTIDINE 20 MG TAB PO SCH (21:00)
[2020-07-19] MEDS: HYDROCORTISONE SUC 100 MG INJ IV SCH ×3 (01:00→17:00)
[2020-07-19] MEDS: METRONIDAZOLE 250mg IVPB 250 MG/50 ML BAG IV SCH (01:00)
[2020-07-19] MEDS: Ringers Lactate 1,000 ML IV SCH ×3 (01:32→20:56)
[2020-07-19 06:04] LABS: Absolute Lymphocytes (CBC) 0.7 K/uL (0.7-4.9); Basophils % 0.4 % (0-1.3); Hematocrit 36.6 % (39.6-49.0); Lymphocytes % 15.5 % (15.3-44.8); MPV 8.6 fL (7.6-11.3); RBC Red Blood Cell Count 4.78 M/uL (4.33-5.43)
[2020-07-19] MEDS: TACROLIMUS 0.5 MG PO SCH ×2 (06:36→20:40)
[2020-07-19] MEDS: metroNIDAZOLE 500 MG TABLET PO SCH ×4 (06:38→23:11)
[2020-07-19 07:25] LABS: Albumin 2.7 g/dL (3.4-5.0); Magnesium 1.4 mg/dL (1.8-2.4); Phosphorus 1.7 mg/dL (2.5-4.9); Uric Acid 8.2 mg/dL (3.5-7.2)
[2020-07-19 07:28] LABS: Potassium 2.6 mmol/L (3.5-5.1)
[2020-07-19] MEDS: HEPARIN 5000 UNIT/ML 1 ML VIAL SQ SCH ×2 (09:00→20:42)
[2020-07-19 09:23] LABS: Platelet Estimate DECR; White Blood Cell Scan OK (OK)
[2020-07-19 09:25] LABS: Blood Morphology Comment NOTED (NOT SEEN)
[2020-07-19] MEDS: ATORVASTATIN 20 MG TAB PO SCH (09:33)
[2020-07-19] MEDS: levoFLOXacin 500 MG TAB PO SCH (09:34)
[2020-07-19] MEDS: METOPROLOL TAR 50 MG TAB PO SCH ×2 (09:34→20:42)
[2020-07-19] MEDS: SODIUM BICARB 325 MG TAB PO SCH (09:34)
[2020-07-19] MEDS: ENSURE ENLIVE 237 ML CAN PO SCH ×2 (09:39→20:42)
[2020-07-19] MEDS: CLOTRIMAZOLE 10 MG TROCHE PO SCH ×4 (11:31→20:43)
--- NOTE | 2020-07-19 11:56 | ECHO ---
HEIGHT: 6 ft 2 in WEIGHT: 189 lb 8 oz DATE OF STUDY: 07/18/[address]: katie cook 2-DIMENSIONAL: YES M.MODE: YES DOPPLER: YES COLOR FLOW: YES TDS: YES PORTABLE: NO DEFINITY: NO BUBBLE STUDY: NO DIAGNOSIS: ATRIAL FIBRILLATION CARDIAC HISTORY: CATHERIZATION: SURGERY: PROSTHETIC VALVE: PACEMAKER: MEASUREMENTS (cm) DIASTOLIC (NORMALS) SYSTOLIC (NORMALS) IVSd 0.9 (0.6-1.2) LA Diam (1.9-4.0) LVEF 79% LVIDd 2.9 (3.5-5.7) LVIDs 1.5 (2.0-3.5) %FS 46% LVPWd 0.9 (0.6-1.2) Ao Diam 3.3 (2.0-3.7) 2 DIMENSIONAL ASSESSMENT: RIGHT ATRIUM: LEFT ATRIUM: RIGHT VENTRICLE: LEFT VENTRICLE: TRICUSPID VALVE: MITRAL VALVE: PULMONIC VALVE: AORTIC VALVE: PERICARDIAL EFFUSION: AORTIC ROOT: LEFT VENTRICULAR WALL MOTION: DOPPLER/COLOR FLOW: COMMENTS: NORMAL 2D ECHO WITH DOPPLER. NORMAL LEFT ATRIAL SIZE. NO THROMBUS. TECHNOLOGIST: GABRIEL VIEIRA
--- NOTE | 2020-07-19 12:19 | PN ---
Date of Progress Note: 07/18/2020 Mr. Jones was admitted with pneumonia, renal failure, paroxysmal atrial fibrillation, altered mental status. He has a history of kidney transplantation, dyslipidemia, gastroesophageal reflux disease. He had hypokalemia, elevated creatinine, elevated CPK consistent with rhabdomyolysis. He had a shor t episode of atrial fibrillation that has resolved after . Echocardiogram showed normal ej ection fraction without any wall motion abnormalities. atrial fibrillation secondary to c ombination of hypokalemia, pneumonia, renal failure, rhabdomyolysis. I will not put on any anticoagu lation except for baby aspirin considering his echocardiogram has been in sinus rhythm since that one episode. I will sign off the same. He is ready for discharge whenever Dr. Olsen is able to dischar ge him. I will see him in the office as an outpatient as necessary. HARRY/MONICA Voice ID: [id number] Report ID: [id number]
[2020-07-19] MEDS ORDERED: POTASSIUM CL SA 10 MEQ TAB PO ONE (12:44)
[2020-07-19] MEDS ORDERED: MAGNESIUM 50% 3 GM in NA CHLORIDE 0.9% 100 ML IV ONE (12:49)
[2020-07-19] MEDS ORDERED: POTASSIUM PHOS 40 MEQ in NA CHLORIDE 0.9% 500 ML IV ONE (12:49)
[2020-07-19] MEDS: MAGNESIUM OXIDE 400 MG TAB PO SCH ×2 (13:36→20:42)
[2020-07-19] MEDS: POTASS/SODIUM PHOSPHATE 1 PKT POWD.PACK PO SCH ×2 (13:52→20:41)
--- NOTE | 2020-07-19 15:47 | CON ---
Date of Consultation: 07/17/2020 Reason For Consultation: Atrial fibrillation. History Of Present Illness: Mr. Jones is a 60-year-old male who has history of kidney transplant, d yslipidemia, gastroesophageal reflux disease, and hypertension, came in with altered mental status. He was found to have atrial fibrillation, acute renal failure and pneumonia. He was in sinus rhythm by the time I saw him. When he came in, he had no cardiac complaints. He was noted to have some men kristin status issues. He had a potassium 2.8. His creatinine was 1.83. He had a negative chest x-ray. Renal ultrasound showed polycystic kidney disease. CPK of 1761 . His magnesium was pend ing. He is presently on metoprolol, , Lipitor and . Past Medical History: As stated above. Allergies: NONE. Review of Systems: Negative. Social History: Negative. Family History: Negative. Medications: As listed earlier. Physical Examination: General: He is still rather confused, but alert and oriented to name. Vital Signs: Stable, sinus rhythm. HEENT: Negative. Neck: Supple with no bruit. Chest: Clear. Cardiac: Reveals a regular rhythm and rate. No murmurs, gallops or rubs. Abdomen: Benign. Extremities: Revealed no clubbing, cyanosis, or edema. Diagnostic Data: As listed earlier. Impression And Plan: Paroxysmal atrial fibrillation. Echocardiogram is pending. TSH is pending. T his may have been secondary to hypokalemia, renal insufficiency . I would not start any ant icoagulation at this time. I would like to see what his echocardiogram shows before we do that. We recommend . He does have some rhabdomyolysis as well which will be helped on hydration. H is other problems including dyslipidemia, gastroesophageal reflux disease, are all stable. I would continue his present regimen otherwise. We will see what the echo shows. HARRY/NIKAL Voice ID: [id number] Report ID: [id number]
[2020-07-19] MEDS: ONDANSETRON 4 MG (ODT) TAB PO PRN (15:53)
--- NOTE | 2020-07-19 19:23 | PN ---
Date of Progress Note: 07/19/2020 Subjective: Patient was admitted with acute kidney injury. Patient had kidney transplant. Patient's after hydration kidney function has been normalized. Patient refusing any IV replacement. Physical Examination: Vital Signs: When I saw the patient blood pressure of 132/69, pulse of 85, afebrile. Chest: Clear to auscultation. Heart: S1, S2, regular. Abdomen: Soft, nontender. Extremity: No edema. Neurologic: Alert, slightly confused. Laboratory Data: WBC 4.5, H and H 12.1/36. Sodium 139, potassium 2.6, bicarb 33, BUN 21, creatinine 1.1, GFR 63, calcium 7.1, uric acid 8.2, phosphorus 1.7, magnesium 1.4, albumin 2.7. Corrected calcium is 8. Vitamin D still pending. Current Medications: The patient on include Prograf, Cellcept, albuterol, metoprolol 50, LR, Pepcid. Assessment And Plan: 1. End-stage renal disease, chronic kidney disease stage 5, status post kidney transplant. We will continue CellCept and Prograf as outpatient same dose. 2. Acidosis secondary to renal failure, GI loss. Recovered, resolved. Discontinue bicarb. 3. Hypomagnesemia. 4. Hypokalemia. 5. Hypophosphatemia. We will supplement IV. If the patient still refuse we will start p.o. 6. Kidney transplant as above. 7. Urinary tract infection. I doubt this to be any autoimmune disease as kidney function completely normalized. Continue current antibiotic. We will follow up with the primary. 8. Colitis. Continue Flagyl. Time spent discussing with the patient, examining the patient, exam [id number], placing order, discussing with staff and other consulting include including Cardiology and Primary 45 minutes. RYAN Voice ID: [id number] Report ID: [id number] FÉLIX
--- NOTE | 2020-07-19 20:27 | P.PN ---
Subjective Date of Service: 07/19/20 Chief Complaint: weakness Subjective: Improving (reports feeling better, still with generalized weakness. Still with some paranoia, does not trust the medical team. He is more compliant today, willing to take IVF and IV magnesium, otherwise refusing IV medications. Ok with pills.) Review of Systems 10-point ROS is otherwise unremarkable Physical Examination - Vital Signs Temperature: 99.8 F Blood Pressure: 132/78 Pulse: 80 Respirations: 18 Pulse Ox (%): 95 - Studies Microbiology Data (last 24 hrs): 07/13/20 14:45 Blood - Blood Aerobic Blood Culture - Final No growth in 5 days. 07/13/20 14:45 Blood - Blood Anaerobic Blood Culture - Final 07/13/20 14:45 Blood - Blood Aerobic Blood Culture - Final No growth in 5 days. 07/13/20 14:45 Blood - Blood Anaerobic Blood Culture - Final Assessment & Plan Physician Review Additional Text: Physical Exam General: Alert, Oriented x3 Respiratory: Clear to auscultation bilaterally, slight diminished at baseline Cardiovascular: No edema, Regular rate/rhythm, Normal S1 S2 Gastrointestinal: Soft and benign, Non-distended, No tenderness Musculoskeletal: No swelling Neurological: AAOx3, mild confusion, mild paranoia, more compliant today Problem List Hypovolemic shock ARF (acute renal failure) Enteritis Aspiration pneumonia Metabolic acidosis rhabdomyolysis polycystic kidney disease s/p renal transplant IV hydration, initially for sepsis and CPK/rhabdo - pt refused, stopped. Oral bicarbonate replacement per nephrology. Continue IV antibiotics- cefepime and Flagyl to cover aspiration pneumonia and enteritis. diarrhea resolved over last 1-2 days UA suggest the presence of UTI. Urine culture: No growth. family friend states patient is not at baseline, ex- agrees. he does seem to have h/o skepticism / ?paranoid. ex- of 20yrs, states no significant psych history she is aware of Nephrology following, renal function improving Diet as tolerated. continue PO antibiotics, continue electrolyte supplementation, needs to be PO PT/OT - recommend wheelchair, patient lives alone, agreeable to SNF, however ,patient is uninsured unfortunately Psychiatry consulted for paranoia, decision making capacity. patient is very sharp, but when pressed on certain thoughts he is unable to give further explanation/reason at this time dispo: anticipate dc in ~48hrs patient still remains with generalized weakness, does not have safe place to be discharged. Has some friends but unclear how often would be able to check on him remains with some paranoia as well, not as agitated Time Spent Managing Pts Care (In Minutes): 35
[2020-07-19] MEDS: FAMOTIDINE 20 MG TAB PO SCH (20:43)
[2020-07-20] MEDS: ONDANSETRON 4 MG (ODT) TAB PO PRN ×2 (03:49→15:58)
[2020-07-20] MEDS: metroNIDAZOLE 500 MG TABLET PO SCH ×3 (05:29→18:00)
[2020-07-20 06:24] LABS: Absolute Lymphocytes (CBC) 0.5 K/uL (0.7-4.9); Basophils % 0.4 % (0-1.3); Hematocrit 34.9 % (39.6-49.0); Lymphocytes % 13.7 % (15.3-44.8); MPV 8.9 fL (7.6-11.3); RBC Red Blood Cell Count 4.52 M/uL (4.33-5.43)
[2020-07-20 07:18] LABS: Albumin 2.5 g/dL (3.4-5.0); Bilirubin Total 1.3 mg/dL (0.2-1.0); Protein, Total 4.7 g/dL (6.4-8.2)
[2020-07-20 07:19] LABS: Magnesium 1.1 mg/dL (1.8-2.4); Phosphorus 0.9 mg/dL (2.5-4.9)
[2020-07-20] MEDS: levoFLOXacin 500 MG TAB PO SCH (09:00)
[2020-07-20] MEDS: HEPARIN 5000 UNIT/ML 1 ML VIAL SQ SCH ×2 (09:00→20:52)
[2020-07-20] MEDS: MAGNESIUM OXIDE 400 MG TAB PO SCH ×2 (09:00→20:52)
[2020-07-20] MEDS: TACROLIMUS 0.5 MG PO SCH ×2 (09:54→20:48)
[2020-07-20] MEDS: METOPROLOL TAR 50 MG TAB PO SCH ×2 (10:09→20:52)
[2020-07-20] MEDS: ATORVASTATIN 20 MG TAB PO SCH (10:09)
[2020-07-20] MEDS: POTASS/SODIUM PHOSPHATE 1 PKT POWD.PACK PO SCH ×2 (10:09→20:47)
[2020-07-20] MEDS: CLOTRIMAZOLE 10 MG TROCHE PO SCH ×4 (10:10→20:52)
[2020-07-20] MEDS: ENSURE ENLIVE 237 ML CAN PO SCH ×2 (10:11→20:51)
--- NOTE | 2020-07-20 11:49 | P.PN ---
Subjective Date of Service: 07/26/20 Chief Complaint: weakness 60 yr old male with HTN , of Polycystic kidney disease , renal failure S/P Kidney transplant in 2002 on Cellcept and prograf Pt found on the floor covered with urine and stool On admission Pt was hypotensive Cr 4.5, bicarb 9, Abd cT no hydro nephrosis today pt with lo K, Mg and phos , poor oral intake agreed to for PICC, want to try one time only Aggressive electrolytes replacement once PICC inserted Physical exam General: Awake, NAD CHEST; CTAB, no wheezes or rales HEART : RRR. Normal S1,2 no murmur or rub Abd: soft, Nt Ext: no edema Skin : No rash A/P RAMEZ due to prerenal azotemia from dehydration Cont IVF , will reduce rate Abdominal CT: no hydro Renal dose meds I/O, Avoid NSAID and contrast Kidney transplant on tacrolimus and cellcept Rhabomyolysis resolved refeeding syndrome pt with lo K, Mg and phos , poor oral intake agreed to for PICC, want to try one time only Aggressive electrolytes replacement once PICC inserted Diarrhea resolved cont flagyl Total time spent 45 min Physical Examination - Vital Signs Temperature: 99.1 F Blood Pressure: 142/86 Pulse: 81 Respirations: 17 Pulse Ox (%): 95
--- NOTE | 2020-07-20 17:29 | P.PN ---
Subjective Date of Service: 07/20/20 Chief Complaint: weakness Subjective: No new changes (Patient reports feeling okay, refusing IV medications, IV access, antibiotics He is agreeable to electrolyte replacement and home medications. Patient is asking for names of various staff members, stating he has friends with multiple watcher automat [employer]. Asking how much my malpractice insurance covers.) Review of Systems 10-point ROS is otherwise unremarkable Physical Examination - Vital Signs Temperature: 98.7 F Blood Pressure: 129/78 Pulse: 75 Respirations: 17 Pulse Ox (%): 91 Assessment & Plan Physician Review Additional Text: Physical Exam General: Alert, Oriented x3 Respiratory: Clear to auscultation bilaterally, slight diminished at baseline Cardiovascular: No edema, Regular rate/rhythm, Normal S1 S2 Gastrointestinal: Soft and benign, Non-distended, No tenderness Musculoskeletal: No swelling Neurological: AAOx3, mild paranoia Problem List Hypovolemic shock ARF (acute renal failure) Enteritis Aspiration pneumonia Metabolic acidosis rhabdomyolysis polycystic kidney disease s/p renal transplant IV hydration, initially for sepsis and CPK/rhabdo - pt refused, stopped. Oral bicarbonate replacement per nephrology. refused IV antibiotics, switched to p.o., however patient now refusing p.o. antibiotics, continues with low-grade temperatures, however afebrile diarrhea resolved over last 2-3 days UA suggest the presence of UTI. Urine culture: No growth. Nephrology following, renal function improving. Diet as tolerated. PT/OT - recommend wheelchair, patient lives alone, agreeable to SNF Psychiatry consulted for paranoia, decision making capacity. patient is very sharp, but when pressed on certain thoughts he is unable to give further explanation/reason at this time dispo: anticipate dc in ~48hrs patient still remains with generalized weakness, does not have safe place to be discharged. Has some friends but unclear how often would be able to check on him remains with some paranoia as well, not as agitated After further discussion, patient is amenable to PICC line placement Time Spent Managing Pts Care (In Minutes): 35
--- NOTE | 2020-07-20 17:45 | RAD REPORT ---
EXAM DESCRIPTION: RAD - Chest Single View - 07/20/2020 5:40 pm CLINICAL HISTORY: Device placement PICC line placement . IMPRESSION: PICC line with its tip in the mid superior vena cava
[2020-07-20] MEDS: Ringers Lactate 1,000 ML IV SCH (18:36)
[2020-07-20] MEDS: POTASSIUM 25 MEQ EFFERV TAB PO ONE ×2 (20:31→20:47)
[2020-07-20] MEDS ORDERED: Magnesium Sulfate 2gm IVPB 2 G/50 ML BAG IV ONE (20:35)
[2020-07-20] MEDS: FAMOTIDINE 20 MG TAB PO SCH (20:52)
[2020-07-20] MEDS ORDERED: KCL 20 MEQ/100 mL IVPB 20 MEQ/100 ML BAG IV SCH (22:00)
[2020-07-20 22:48] LABS: Urine Protein/Creatinine Ratio 0.95 ratio (<0.15)
[2020-07-21] MEDS: metroNIDAZOLE 500 MG TABLET PO SCH ×5 (00:29→23:35)
[2020-07-21] MEDS: Ringers Lactate 1,000 ML IV SCH ×2 (03:32→05:55)
[2020-07-21 06:11] LABS: Absolute Lymphocytes (CBC) 0.7 K/uL (0.7-4.9); Basophils % 0.8 % (0-1.3); Hematocrit 32.6 % (39.6-49.0); Lymphocytes % 21.7 % (15.3-44.8); MPV 9.1 fL (7.6-11.3); RBC Red Blood Cell Count 4.19 M/uL (4.33-5.43)
[2020-07-21 06:37] LABS: Albumin 2.2 g/dL (3.4-5.0); Magnesium 1.6 mg/dL (1.8-2.4); Potassium 3.4 mmol/L (3.5-5.1); Protein, Total 4.4 g/dL (6.4-8.2)
[2020-07-21 06:59] LABS: Blood Morphology Comment NOT SEEN (NOT SEEN); Platelet Estimate DECR; White Blood Cell Scan OK (OK)
[2020-07-21] MEDS ORDERED: MAGNESIUM SULFATE 1 gm IVPB 1 GM/100 ML BAG IV ONE (07:26)
[2020-07-21] MEDS: ONDANSETRON 4 MG/2 ML VIAL IV PRN (08:38)
[2020-07-21] MEDS: MAGNESIUM OXIDE 400 MG TAB PO SCH ×2 (09:00→20:28)
[2020-07-21] MEDS: ENSURE ENLIVE 237 ML CAN PO SCH ×2 (09:00→20:28)
[2020-07-21] MEDS: ATORVASTATIN 20 MG TAB PO SCH (09:44)
[2020-07-21] MEDS: levoFLOXacin 500 MG TAB PO SCH (09:44)
[2020-07-21] MEDS: POTASS/SODIUM PHOSPHATE 1 PKT POWD.PACK PO SCH ×2 (09:44→20:33)
[2020-07-21] MEDS: HEPARIN 5000 UNIT/ML 1 ML VIAL SQ SCH ×2 (09:45→20:27)
[2020-07-21] MEDS: CLOTRIMAZOLE 10 MG TROCHE PO SCH ×4 (09:45→20:28)
[2020-07-21] MEDS: TACROLIMUS 0.5 MG PO SCH ×2 (09:46→20:27)
[2020-07-21] MEDS: METOPROLOL TAR 50 MG TAB PO SCH ×2 (09:46→20:28)
[2020-07-21] MEDS: KCL 20 MEQ/100 mL IVPB 20 MEQ/100 ML BAG IV SCH ×2 (09:47→12:48)
[2020-07-21] MEDS ORDERED: POTASSIUM 25 MEQ EFFERV TAB PO ONE (10:04)
[2020-07-21] MEDS: POTASSIUM PHOS 30 MM in NA CHLORIDE 0.9% 500 ML IV ONE (11:27)
[2020-07-21] MEDS ORDERED: PROMETHAZINE INJ 25 MG/ML AMP IV ONE (14:21)
[2020-07-21 14:59] LABS: Urine Appearance TURBID; Urine Bilirubin NEGATIVE (NEG); Urine Blood NEGATIVE (NEG); Urine Color DK YELLOW; Urine Glucose NEGATIVE (NEG); Urine Protein 1+ (NEG); Urine Specific Gravity 1.015 (1.005-1.030); Urine Urobilinogen 0.2 mg/dL (0.2-1.0); Urine pH 8.5 (5.0-7.0)
[2020-07-21 15:02] LABS: Urine Microscopic Reflex ORDER UMIC
[2020-07-21 15:05] LABS: Urine Amorphous Sediment 2+ /HPF (NONE SEEN); Urine Bacteria <20 /HPF (NONE SEEN); Urine RBC NONE SEEN /HPF (NONE SEEN)
--- NOTE | 2020-07-21 15:28 | PN ---
Date of Progress Note: 07/21/2020 Subjective: The patient had kidney transplant. The patient was admitted with colitis. The patient had depleted electrolyte and acidosis. Physical Examination: Vital Signs: When I saw the patient, blood pressure 156/74, pulse of 70, afebrile. Chest: Clear to auscultation. Heart: S1, S2. Regular. Abdomen: Soft, nontender. Extremities: Trace edema. Neuro: Alert. No focality. Laboratory Data: WBC 3.1, H and H 10.7/30.6. Sodium 136, potassium 3.4, bicarb 28, BUN 15, creatinine 0.9, calcium 6.2, magnesium 1.6. Medications: Current medications the patient on include: 1. Levaquin. 2. Metronidazole. 3. Atorvastatin. 4. Metoprolol. 5. Ensure. 6. CellCept. 7. Prograf. Assessment And Plan: 1. Chronic kidney disease stage 5 status post kidney transplant. Continue current treatment as kidney function being stable. We will follow up. 2. Depleted electrolytes, hypokalemia, hypomagnesemia, hypophosphatemia to rule out salt wasting. PC ratio was not significant that not support any Fanconi. We will send for urine electrolytes and we will follow up. To see if there is any RTA. I am going to replace magnesium and potassium and potassium phosphate and we will start the patient on amiloride. We will follow up. 3. Colitis. Continue current antibiotic. We will follow up with primary. Time spent discussing with the patient, examining the patient, exam [id number], placing order, discussing with staff and other consulting include Primary 45 minutes. RYAN Voice ID: [id number] Report ID: [id number] MTDD
[2020-07-21] MEDS: Ringers Lactate 1,000 ML with POTASSIUM CL 40 MEQ IV SCH ×4 (16:30→22:12)
[2020-07-21 19:27] LABS: Magnesium 1.5 mg/dL (1.8-2.4)
[2020-07-21 19:35] LABS: Potassium 4.7 mmol/L (3.5-5.1)
[2020-07-21 19:38] LABS: Phosphorus 0.8 mg/dL (2.5-4.9)
[2020-07-21] MEDS ORDERED: POTASSIUM PHOS IN 0.9 % NACL 0 MMOL/0 ML BAG IV ONE (19:58)
[2020-07-21] MEDS ORDERED: Magnesium Sulfate 2gm IVPB 2 G/50 ML BAG IV ONE (20:00)
[2020-07-21] MEDS: FAMOTIDINE 20 MG TAB PO SCH (20:29)
[2020-07-21] MEDS ORDERED: POTASSIUM PHOS 30 MM in NA CHLORIDE 0.9% 500 ML IV ONE (20:35)
--- NOTE | 2020-07-21 20:47 | P.PN ---
Subjective Date of Service: 07/21/20 Chief Complaint: weakness Subjective: Other (patient reports feeling ok, complaining of nausea, not liking bicarb oral meds, reports he is more cold today. denies diarrhea, SOB, abdominal pain. Agitated again today, not very cooperative, refuses to allow me to do abdominal exam) Review of Systems 10-point ROS is otherwise unremarkable Physical Examination - Vital Signs Temperature: 98.4 F Blood Pressure: 133/70 Pulse: 75 Respirations: 16 Pulse Ox (%): 94 Assessment & Plan Physician Review Additional Text: Physical Exam General: Alert, Oriented x3 Pulm: Clear to auscultation bilaterally, slight diminished at baseline CV: No edema, Regular rate/rhythm, Normal S1 S2 Abd: refused my exam Ext: no edema of LLE, refused to allow me to palpate RLE Neuro/Psych: AAOx3, mild paranoia, angry/agitated Problem List Hypovolemic shock, Metabolic acidosis, resolved ARF (acute renal failure) Enteritis Aspiration pneumonia rhabdomyolysis polycystic kidney disease s/p renal transplant IV hydration, initially for sepsis and CPK/rhabdo - pt refused, stopped. Oral bicarbonate replacement per nephrology. refused IV antibiotics, switched to p.o., however patient now refusing p.o. antibiotics, continues with low-grade temperatures, however afebrile diarrhea resolved over last ~3 days now with nausea, no emesis UA suggest the presence of UTI. Urine culture: No growth. Nephrology following, renal function improving. Diet as tolerated. PT/OT - recommend wheelchair, patient lives alone, agreeable to SNF Psychiatry consulted for paranoia, decision making capacity. patient is very sharp, but when pressed on certain thoughts he is unable to give further explanation/reason at this time - felt patient did not require any medication or change in treatment PICC placed on 07/20 dispo: anticipate dc in ~48hrs patient still remains with generalized weakness, does not have safe place to be discharged. Has some friends but unclear how often would be able to check on him remains with some paranoia as well, rude to staff, refuses medications at different times, refuses my exam at times would like to get CT to ensure improvement and no new development - pt has missed mulitiple days of antibiotics due to his refusal Patient winced slightly when he was self palpating near RUQ/epigastric car Time Spent Managing Pts Care (In Minutes): 35
[2020-07-21] MEDS ORDERED: POTASSIUM PHOS IN 0.9 % NACL 30 MMOL/500 ML BAG IV ONE (21:05)
[2020-07-22] MEDS: metroNIDAZOLE 500 MG TABLET PO SCH ×3 (05:40→17:42)
[2020-07-22 06:33] LABS: Absolute Lymphocytes (CBC) 0.7 K/uL (0.7-4.9); Basophils % 1.2 % (0-1.3); Hematocrit 32.5 % (39.6-49.0); MPV 9.4 fL (7.6-11.3); RBC Red Blood Cell Count 4.12 M/uL (4.33-5.43)
[2020-07-22 07:01] LABS: Albumin 2.1 g/dL (3.4-5.0); Magnesium 1.8 mg/dL (1.8-2.4); Phosphorus 1.9 mg/dL (2.5-4.9); Potassium 5.3 mmol/L (3.5-5.1)
[2020-07-22] MEDS ORDERED: SODIUM PHOSPHATE 15 MM in NA CHLORIDE 0.9% 250 ML IV ONE (09:00)
[2020-07-22] MEDS: ENSURE ENLIVE 237 ML CAN PO SCH ×2 (09:00→21:13)
[2020-07-22] MEDS: Ringers Lactate 1,000 ML with POTASSIUM CL 40 MEQ IV SCH ×2 (09:28)
[2020-07-22] MEDS: levoFLOXacin 500 MG TAB PO SCH (09:33)
[2020-07-22] MEDS: ONDANSETRON 4 MG/2 ML VIAL IV PRN ×2 (09:34→17:56)
[2020-07-22] MEDS: ATORVASTATIN 20 MG TAB PO SCH (09:37)
[2020-07-22] MEDS ORDERED: PROMETHAZINE INJ 25 MG/ML AMP IV ONE (10:00)
[2020-07-22] MEDS: METOPROLOL TAR 50 MG TAB PO SCH ×2 (10:31→21:13)
[2020-07-22] MEDS: HEPARIN 5000 UNIT/ML 1 ML VIAL SQ SCH ×2 (10:31→21:12)
[2020-07-22] MEDS: CLOTRIMAZOLE 10 MG TROCHE PO SCH ×4 (10:31→21:13)
[2020-07-22] MEDS: MAGNESIUM OXIDE 400 MG TAB PO SCH ×2 (10:32→21:00)
[2020-07-22] MEDS: AMILORIDE HCL 5 MG TABLET PO SCH (10:34)
[2020-07-22] MEDS: TACROLIMUS 0.5 MG PO SCH ×2 (10:34→21:11)
--- NOTE | 2020-07-22 12:40 | P.PN ---
Subjective Date of Service: 07/22/20 Chief Complaint: weakness Subjective: No new changes (patient reports feeling a little better today, continues with nausea at times, does not want to discuss further with me - refuses to answer if anything in particular sets this off. He did state one powder medication makes him gag. Reported both zofran and Phenergan have helped) Physical Examination - Vital Signs Temperature: 98.2 F Blood Pressure: 148/74 Pulse: 75 Respirations: 20 Pulse Ox (%): 92 Assessment & Plan Physician Review Additional Text: Physical Exam General: Alert, Oriented x3, seems angry/frustrated Pulm: Clear to auscultation bilaterally, slight diminished at baseline CV: Regular rate/rhythm, no murmur Abd: soft, patient winces at times, but denies tenderness Ext: refused to allow me to palpate legs / check for edema Neuro/Psych: AAOx3, mild paranoia, angry/frustrated does not want to give me further information about his nausea. states "doctors make me nauseous" when asked if anything in particular brings on his nausea I discussed i was asking to help identify what could be the cause - whether medication, infection, obstruction, etc. Patient refused to answer further questions. I recommended CT abd/pelvis to further evaluate since he seemed to be wincing on my exam, and he missed several doses of antibiotics due to his refusal. He refused, stated he will need to talk to his patternator first. Problem List Hypovolemic shock, Metabolic acidosis, resolved ARF (acute renal failure) Enteritis Aspiration pneumonia rhabdomyolysis polycystic kidney disease s/p renal transplant refused IV antibiotics, switched to p.o., patient refused PO antibiotics days ago as well, now taking them; remains afebrile diarrhea resolved over last ~3-4 days now with nausea, and dry-heaving - not forthcoming with any more specifics, does state one of the meds "tastes bad", but is nauseous separately from taking his meds UA suggest the presence of UTI, however Urine culture: No growth. Nephrology following, renal function improving. Diet as tolerated. replacing electrolytes PT/OT - recommend wheelchair, patient lives alone, agreeable to SNF Psychiatry consulted for paranoia, decision making capacity. patient is very sharp, but when pressed on certain thoughts he is unable to give further explanation/reason at this time - felt patient did not require any medication or change in treatment PICC placed on 07/20 dispo: anticipate dc in ~48hrs patient still remains with generalized weakness, does not have safe place to be discharged. Has some friends but unclear how often would be able to check on him remains with some paranoia as well, rude to staff, refuses medications at different times, refuses my exam at times would like to get CT to ensure improvement and no new development - pt has missed mulitiple days of antibiotics due to his refusal Patient winced slightly when he was self palpating near RUQ/epigastric area yesterday, and again today for me. Still refusing CT scan, wants to talk to his patternator first. Time Spent Managing Pts Care (In Minutes): 40
[2020-07-22] MEDS ORDERED: CALCITROL 0.25 MCG CAP PO SCH (13:00)
[2020-07-22] MEDS: FAMOTIDINE 20 MG TAB PO SCH (21:12)
[2020-07-22 22:08] LABS: Vitamin D 1,25-Dihydroxy Total <8 pg/mL (18-72); Vitamin D,1,25-OH2, D2 <8 pg/mL
--- NOTE | 2020-07-23 00:02 | PN ---
Date of Progress Note: 07/22/2020 Subjective: The patient was admitted with acute kidney injury secondary to GI loss, colitis with depleted magnesium, phosphorus, and potassium. The patient on aggressive replacement for 24 hours. We will start the patient on amiloride. Physical Examination: Vital Signs: When I saw the patient, blood pressure 123/70, pulse of 73, afebrile. Chest: Clear to auscultation. Heart: S1, S2. Regular. Abdomen: Soft, nontender. Extremities: No edema. Laboratory Data: WBC 3.3, H and H 10.6/32. Sodium 135, potassium 5.3, bicarb 22, BUN 13, creatinine 1. Current Medications: Include Prograf, Cellcept, potassium phosphate, LR, KCl, amiloride. Assessment And Plan: 1. Acute kidney injury on chronic kidney disease, recovered, resolved. 2. Chronic kidney disease stage 5, status post kidney transplant, donor, status post acute kidney injury as above. Discontinue IV fluid. Continue current immunosuppressive medication. 3. Hypokalemia, resolved, currently hyperkalemia. Discontinue LR with supplement. 4. Hypomagnesemia and hypophosphatemia. Continue current treatment. Continue amiloride. 5. Colitis. Continue current antibiotics. Time spent discussing with the patient, examining the patient, exam [id number], placing order, discussing with staff and other consulting include Primary 45 minutes. RYAN Voice ID: [id number] Report ID: [id number] FÉLIX
[2020-07-23] MEDS ORDERED: CYCLOBENZAPRINE 10 MG TAB PO ONE (04:53)
[2020-07-23] MEDS: metroNIDAZOLE 500 MG TABLET PO SCH ×5 (05:05→23:43)
[2020-07-23 05:53] LABS: Absolute Lymphocytes (CBC) 0.8 K/uL (0.7-4.9); Basophils % 0.2 % (0-1.3); Hematocrit 34.9 % (39.6-49.0); Lymphocytes % 22.3 % (15.3-44.8); MPV 8.5 fL (7.6-11.3); RBC Red Blood Cell Count 4.42 M/uL (4.33-5.43)
[2020-07-23 06:30] LABS: Albumin 2.3 g/dL (3.4-5.0); Magnesium 1.3 mg/dL (1.8-2.4); Phosphorus 1.7 mg/dL (2.5-4.9)
[2020-07-23 06:34] LABS: Potassium 5.8 mmol/L (3.5-5.1)
[2020-07-23] MEDS ORDERED: MAGNESIUM SULFATE 1 gm IVPB 1 GM/100 ML BAG IV ONE ×3 (06:43→22:35)
[2020-07-23 07:52] LABS: Blood Morphology Comment NOT SEEN (NOT SEEN); Platelet Estimate DECR
[2020-07-23] MEDS ORDERED: POTASSIUM PHOS IN 0.9 % NACL 15 MMOL/250 ML BAG IV ONE (09:00)
[2020-07-23] MEDS: ENSURE ENLIVE 237 ML CAN PO SCH ×2 (09:00→20:09)
[2020-07-23] MEDS: MAGNESIUM OXIDE 400 MG TAB PO SCH ×2 (09:00→20:09)
[2020-07-23] MEDS: CLOTRIMAZOLE 10 MG TROCHE PO SCH ×4 (09:00→20:08)
[2020-07-23] MEDS ORDERED: SODIUM PHOSPHATE IV ONE (09:00)
[2020-07-23] MEDS ORDERED: NS IV ONE (09:00)
[2020-07-23] MEDS: ONDANSETRON 4 MG/2 ML VIAL IV PRN ×2 (09:37→20:08)
[2020-07-23] MEDS: ATORVASTATIN 20 MG TAB PO SCH (11:03)
[2020-07-23] MEDS: levoFLOXacin 500 MG TAB PO SCH (11:03)
[2020-07-23] MEDS: METOPROLOL TAR 50 MG TAB PO SCH ×2 (11:04→20:08)
[2020-07-23] MEDS: HEPARIN 5000 UNIT/ML 1 ML VIAL SQ SCH ×2 (11:05→20:08)
[2020-07-23] MEDS: TACROLIMUS 0.5 MG PO SCH ×2 (11:06→20:09)
[2020-07-23] MEDS: AMILORIDE HCL 5 MG TABLET PO SCH (12:39)
[2020-07-23 17:50] LABS: Urine Protein/Creatinine Ratio 0.69 ratio (<0.15)
[2020-07-23] MEDS: FAMOTIDINE 20 MG TAB PO SCH (20:08)
--- NOTE | 2020-07-23 21:08 | P.PN ---
Subjective Date of Service: 07/23/20 Chief Complaint: weakness Subjective: No new changes (reports feeling ok, +nausea - states this is chronic issue "since kidney tranpslant". States he gets nauseous every few months, but can sometimes go a year without it. Feels similar to those episodes. Also reporting tightness of R lower leg, just above ankle like wearing tight sandals) Review of Systems 10-point ROS is otherwise unremarkable Physical Examination - Vital Signs Temperature: 97.6 F Blood Pressure: 153/78 Pulse: 71 Respirations: 18 Pulse Ox (%): 94 Assessment & Plan Physician Review Additional Text: Physical Exam General: Alert, Oriented x3 Pulm: Clear to auscultation bilaterally CV: Regular rate/rhythm, no murmur Abd: soft, patient still winces at times, but denies tenderness states "i don't see why you need to examine my abdomen" Ext: no edema. RLE: no erythema, no lesions, full ROM of R ankle, no pain Neuro/Psych: AAOx3, mild paranoia patient also reported today that he has had difficulty with his electrolytes o thanh the years and his inpatient coder is always having him start/stop different meds Problem List Hypovolemic shock, Metabolic acidosis, resolved ARF (acute renal failure) secondary to hypovolemia / enteritis Enteritis Aspiration pneumonia Hypomagnesemia, Hypokalemia Rhabdomyolysis Polycystic kidney disease s/p renal transplant for 1-2 days last week, refused IV antibiotics, switched to p.o., patient refused PO antibiotics days ago as well, now taking them; remains afebrile diarrhea resolved ~3-4 days ago now with nausea, and dry-heaving - states this is chronic since having renal transplant, he takes zofran or phenergan at home when this happens. helps to take one ~30min before he plans to eat UA suggested the presence of UTI, however Urine culture: No growth. Nephrology following, renal function improving. Diet as tolerated. replacing electrolytes - difficult to maintain normal magnesium levels Hypomagnesemia, Hypokalemia HypoMg: likely GI loss and renal loss given patient's initial presentation, however reports diarrhea has improved - yet despite lower GI loss, Mg remains low HypoMg is common in patients s/p solid organ transplants such has his renal transplant, and incidence can be nearly 40% in renal transplant patients treated with tacrolimus, which he is on. review of literature suggests conversion to a m TOR inhibitor may lead to an increase of Mg levels by ~0.2mg/dL. (decreasing renal wasting/excretion) Significantly elevated PTH, low Vit D, normal calcium levels (Corrected for hypoalbuminemia) - concerning for secondary hyperparathyroidism - possibly from intestinal malabsorption / ARF possibly contributed / caused paranoia /psychosis Psychiatry consulted for paranoia, decision making capacity. patient is very sharp, but when pressed on certain thoughts he is unable to give further explanation/reason at this time - felt patient did not require any medication or change in treatment PICC placed on 07/20 PT/OT - recommend wheelchair, patient lives alone, agreeable to SNF dispo: anticipate dc in ~48hrs Time Spent Managing Pts Care (In Minutes): 35
[2020-07-23] MEDS ORDERED: SOD POLYSTYREN SUL 15 GM/60 ML UCUP PO ONE (22:35)
[2020-07-23] MEDS ORDERED: NA CHLORIDE 0.9% 250 ML ONE (23:41)
--- NOTE | 2020-07-24 | PN ---
Date of Progress Note: 07/23/2020 Chief Complaint: Acute kidney injury associated with volume depletion in setting of GI loss. Subjective: The patient was found to have colitis and developed fluid depletion associated with hypo magnesemia, hypophosphatemia, and hypokalemia. The patient received aggressive fluid resuscitation a nd replacement was done over 24 hours. The patient currently is on amiloride for mild edema. Acute kidney injury resolved. Renal function recovered to baseline. Hypokalemia resolved and the patient is currently has elevated potassium of 5.3. Review of Systems: Denies PND or orthopnea. Physical Examination: Lungs: Diminished breath sounds at bases. Heart: S1, S2. Abdomen: Soft, benign. Extremities: No edema. Impression And Plan: 1.Chronic kidney disease stage 5, status post kidney transplant. The patient developed acute kidney injury. Renal function has recovered. 2.Hyperkalemia of mild degree is present. Monitor electrolytes. Adjust treatment. The patient may not be a candidate for amiloride in view of hyperkalemia. Currently, hypomagnesemia and hypophospha temia is treated with replacement. 3.Continue Prograf and CellCept. Monitor electrolytes and renal function. EB/MODL Voice ID: [id number] Report ID: [id number]
[2020-07-24] MEDS: ONDANSETRON 4 MG/2 ML VIAL IV PRN (04:59)
[2020-07-24] MEDS: metroNIDAZOLE 500 MG TABLET PO SCH ×3 (05:02→18:00)
[2020-07-24 05:30] LABS: Absolute Lymphocytes (CBC) 0.8 K/uL (0.7-4.9); Basophils % 0.6 % (0-1.3); Hematocrit 34.8 % (39.6-49.0); Lymphocytes % 19.1 % (15.3-44.8); MPV 8.6 fL (7.6-11.3); RBC Red Blood Cell Count 4.43 M/uL (4.33-5.43)
[2020-07-24 05:42] LABS: Albumin 2.3 g/dL (3.4-5.0); Magnesium 1.7 mg/dL (1.8-2.4); Phosphorus 2.3 mg/dL (2.5-4.9)
[2020-07-24 05:45] LABS: Potassium 6.2 mmol/L (3.5-5.1)
[2020-07-24] MEDS: INSULIN -REGULAR HUMAN 50 UNIT/0.5 ML ML IV ONE ×2 (06:29→06:30)
[2020-07-24] MEDS: D50W 25 GM/50 ML SYRINGE IV ONE ×2 (06:29→06:30)
[2020-07-24] MEDS ORDERED: SODIUM BICARB 50 MEQ/50ML VIAL ONE (06:35)
[2020-07-24] MEDS ORDERED: POTASS/SODIUM PHOSPHATE 1 PKT POWD.PACK PO SCH (09:00)
[2020-07-24] MEDS: MAGNESIUM OXIDE 400 MG TAB PO SCH ×2 (09:00→21:00)
[2020-07-24] MEDS: ENSURE ENLIVE 237 ML CAN PO SCH ×2 (09:00→21:00)
[2020-07-24] MEDS ORDERED: MAGNESIUM SULFATE 1 gm IVPB 1 GM/100 ML BAG IV ONE (09:00)
[2020-07-24] MEDS: HEPARIN 5000 UNIT/ML 1 ML VIAL SQ SCH ×2 (09:00→21:25)
[2020-07-24] MEDS: TACROLIMUS 0.5 MG PO SCH ×2 (09:16→21:23)
[2020-07-24] MEDS: levoFLOXacin 500 MG TAB PO SCH (09:18)
[2020-07-24] MEDS: ATORVASTATIN 20 MG TAB PO SCH (09:18)
[2020-07-24] MEDS: SODIUM BICARB 325 MG TAB PO SCH ×2 (09:19→21:21)
[2020-07-24] MEDS: METOPROLOL TAR 50 MG TAB PO SCH ×2 (09:19→21:22)
[2020-07-24] MEDS: CALCITROL 0.25 MCG CAP PO SCH (09:19)
[2020-07-24] MEDS: CLOTRIMAZOLE 10 MG TROCHE PO SCH ×4 (09:20→21:00)
[2020-07-24] MEDS ORDERED: NA CHLORIDE 0.9% 1,000 ML IV ONE (09:58)
[2020-07-24] MEDS ORDERED: FUROSEMIDE 40 MG/4 ML VIAL IV ONE (09:58)
[2020-07-24] MEDS ORDERED: ALBUTEROL 2.5 MG/3 ML NEB SOL NEB ONE (09:59)
[2020-07-24] MEDS ORDERED: D50W 25 GM/50 ML SYRINGE IV PRN (10:00)
[2020-07-24] MEDS ORDERED: D50W 25 GM/50 ML SYRINGE IV ONE (10:00)
[2020-07-24] MEDS ORDERED: GLUCAGON 1 MG/VIAL IM PRN (10:00)
[2020-07-24] MEDS ORDERED: INSULIN -REGULAR HUMAN 50 UNIT/0.5 ML ML IV ONE (10:00)
--- NOTE | 2020-07-24 15:20 | P.PN ---
Subjective Date of Service: 07/24/20 Chief Complaint: weakness Patient has been refusing treatment and was requesting to be transferred to [facility] but patient was declined transfer. He is alert and interactive and oriented x3. He denies diarrhea today. Serum creatinine has improved but patient has hyperkalemia. He refused D50, insulin and Kayexalate this morning. He reports nause. Physical Examination - Vital Signs Temperature: 98.1 F Blood Pressure: 110/51 Pulse: 80 Respirations: 18 Pulse Ox (%): 97 - Physical Exam General: Alert, In no apparent distress, Oriented x3 Neck: Supple Respiratory: Clear to auscultation bilaterally Cardiovascular: No edema, Regular rate/rhythm, Normal S1 S2 Gastrointestinal: Normal bowel sounds, Soft and benign, Non-distended Musculoskeletal: No swelling Neurological: Other (No focal motor deficit. Globally weak.) Assessment And Plan - Current Problems (Diagnosis) (1) Hypovolemic shock Current Visit: Yes Status: Resolved (2) ARF (acute renal failure) Current Visit: Yes Status: Acute (3) Enteritis Current Visit: Yes Status: Acute (4) Kidney transplant complication Current Visit: Yes Status: Acute (5) Metabolic acidosis Current Visit: Yes Status: Resolved (6) Aspiration pneumonia Current Visit: Yes Status: Acute (7) Polycystic kidney disease Current Visit: Yes Status: Acute - Plan Continue IV hydration. Oral bicarbonate replacement per nephrology. Monitor renal function. Continue IV antibiotics-cefepime and Flagyl to cover aspiration pneumonia and enteritis. Stool for C. diff is pending. May need to check Cryptosporidium given that patient is on immunosuppressive medications UA suggest the presence of UTI. Urine culture: No growth. Nephrology is following Diet as tolerated. Physician Review: Patient Assessed, Agree with Above Assessment and Plan Physician Review Additional Text: Physical Exam General: Alert, Oriented x3 Pulm: Clear to auscultation bilaterally CV: Regular rate/rhythm, no murmur Abd: soft, patient still winces at times, but denies tenderness states "i don't see why you need to examine my abdomen" Ext: no edema. RLE: no erythema, no lesions, full ROM of R ankle, no pain Neuro/Psych: AAOx3, mild paranoia patient also reported today that he has had difficulty with his electrolytes over the years and his senior engineering manager is always having him start/stop different meds Problem List Hypovolemic shock, Metabolic acidosis, resolved ARF (acute renal failure) secondary to hypovolemia / enteritis Enteritis Aspiration pneumonia Hypomagnesemia, Hypokalemia Rhabdomyolysis Polycystic kidney disease s/p renal transplant for 1-2 days last week, refused IV antibiotics, switched to p.o., patient refused PO antibiotics days ago as well, now taking them; remains afebrile diarrhea resolved ~3-4 days ago now with nausea, and dry-heaving - states this is chronic since having renal transplant, he takes zofran or phenergan at home when this happens. helps to take one ~30min before he plans to eat UA suggested the presence of UTI, however Urine culture: No growth. Nephrology following, renal function improving. Diet as tolerated. replacing electrolytes - difficult to maintain normalize magnesium levels. He requested for transfer to [facility] but transfer was denied. Hyperkalemia -patient initially refused insulin, D50 and Kayexalate this morning. He took the insulin and D50. -Veltassa if available. -repeat potassium level this afternoon. -nephrology to follow Hypomagnesemia, Hypokalemia HypoMg: likely GI loss and renal loss given patient's initial presentation, however reports diarrhea has improved - yet despite lower GI loss, Mg remains low Significantly elevated PTH, low Vit D, normal calcium levels (Corrected for hypoalbuminemia) - concerning for secondary hyperparathyroidism - possibly from intestinal malabsorption / ARF Paranoia/Psychosis Psychiatry consulted for paranoia PICC placed on 07/20 PT/OT - recommend wheelchair, patient lives alone, agreeable to SNF
[2020-07-24] MEDS: FAMOTIDINE 20 MG TAB PO SCH (21:22)
[2020-07-24] MEDS ORDERED: PROMETHAZINE INJ 25 MG/ML AMP IV ONE (21:43)
[2020-07-25] MEDS: metroNIDAZOLE 500 MG TABLET PO SCH ×4 (00:28→17:53)
--- NOTE | 2020-07-25 02:23 | PN ---
Date of Progress Note: 07/24/2020 Subjective: The patient was admitted with acute kidney injury secondary to prerenal on advanced chronic kidney disease status post kidney transplant. The patient has depletion in magnesium, phosphorus and potassium after supplement. The patient had over-correction on the potassium. Physical Examination: Vital Signs: Blood pressure 131/74, pulse of 84. The patient had good urine output. Chest: Clear to auscultation. Heart: S1, S2, regular. Abdomen: Soft. Nontender. Extremities: No edema. Neurologic: Alert. Slightly confused. No focality. Laboratory Data: WBC 4.1, H and H 11.4/34.8. Sodium 132, potassium 6.2, bicarb 17, BUN 13, creatinine 1, calcium 7.4, phosphorus 2.3, magnesium 1.7, albumin 2.3, corrected calcium is 9, PTH 1100. Urine P/C ratio 0.6. Urine sodium , urine potassium 4, urine chloride 46. Assessment And Plan: 1. Chronic kidney disease stage 5 status post kidney transplant, stable. Continue current immunosuppressive therapy. 2. Hypokalemia, currently hyperkalemia. Discontinue amiloride. Discontinue all supplements. 3. Hypophosphatemia, given the hyperkalemia, Discontinue supplement. 4. Hypomagnesemia. We will supplement. 5. Hyperkalemia. We will give the patient 1 L of normal silent then will diurese. Discontinue potassium phosphate. 6. Acidosis, non-anion gap secondary to renal failure. Start the patient on sodium bicarb. We will follow up. 7. Colitis. Continue current antibiotic. Time spent discussing with the patient, examining the patient, exam [id number], placing order, discussing with staff and other consulting include Primary 45 minutes. TATIANA/MONICA Voice ID: [id number] Report ID: [id number] FÉLIX
[2020-07-25 06:24] LABS: Magnesium 1.5 mg/dL (1.8-2.4); Phosphorus 2.1 mg/dL (2.5-4.9)
[2020-07-25 06:28] LABS: Potassium 5.9 mmol/L (3.5-5.1)
[2020-07-25] MEDS ORDERED: Magnesium Sulfate 2gm IVPB 2 G/50 ML BAG IV ONE (06:40)
[2020-07-25] MEDS ORDERED: SOD POLYSTYREN SUL 15 GM/60 ML UCUP PO ONE (07:48)
[2020-07-25] MEDS ORDERED: CALCIUM GLUC 10% INJ 4.65 MEQ in NA CHLORIDE 0.9% 100 ML IV ONE (07:48)
[2020-07-25] MEDS ORDERED: FUROSEMIDE 20 MG/ 2ML VIAL IV ONE (07:49)
[2020-07-25] MEDS ORDERED: GLUCAGON 1 MG/VIAL IM PRN (07:51)
[2020-07-25] MEDS ORDERED: D50W 25 GM/50 ML SYRINGE IV ONE (07:51)
[2020-07-25] MEDS ORDERED: D50W 25 GM/50 ML SYRINGE IV PRN (07:51)
[2020-07-25] MEDS ORDERED: INSULIN -REGULAR HUMAN 50 UNIT/0.5 ML ML IV ONE (07:52)
[2020-07-25] MEDS: MAGNESIUM OXIDE 400 MG TAB PO SCH ×2 (09:00→21:00)
[2020-07-25] MEDS: HEPARIN 5000 UNIT/ML 1 ML VIAL SQ SCH ×2 (09:00→21:14)
[2020-07-25] MEDS: ENSURE ENLIVE 237 ML CAN PO SCH (09:00)
[2020-07-25] MEDS: CALCITROL 0.25 MCG CAP PO SCH (09:25)
[2020-07-25] MEDS: ONDANSETRON 4 MG/2 ML VIAL IV PRN (09:25)
[2020-07-25] MEDS: SODIUM BICARB 325 MG TAB PO SCH ×3 (09:26→21:10)
[2020-07-25] MEDS: METOPROLOL TAR 50 MG TAB PO SCH ×2 (09:26→21:11)
[2020-07-25] MEDS: levoFLOXacin 500 MG TAB PO SCH (09:26)
[2020-07-25] MEDS: ATORVASTATIN 20 MG TAB PO SCH (09:26)
[2020-07-25] MEDS: CLOTRIMAZOLE 10 MG TROCHE PO SCH ×4 (09:27→21:13)
[2020-07-25] MEDS: TACROLIMUS 0.5 MG PO SCH ×2 (09:28→21:14)
[2020-07-25] MEDS ORDERED: NA CHLORIDE 0.9% 1,000 ML IV ONE (10:25)
[2020-07-25] MEDS ORDERED: FUROSEMIDE 40 MG/4 ML VIAL IV ONE (10:25)
[2020-07-25] MEDS: NA CHLORIDE 0.9% 1,000 ML IV SCH (13:48)
--- NOTE | 2020-07-25 14:09 | P.PN ---
Subjective Date of Service: 07/25/20 Chief Complaint: weakness Subjective: No new changes (No acute events) Review of Systems 10-point ROS is otherwise unremarkable Physical Examination - Vital Signs Temperature: 97.0 F Blood Pressure: 129/66 Pulse: 81 Respirations: 18 Pulse Ox (%): 98 - Physical Exam General: Alert, In no apparent distress HEENT: Atraumatic, Normocephalic Neck: Supple Respiratory: Diminished, Crackles/rales Cardiovascular: Regular rate/rhythm, Normal S1 S2 Capillary refill: <2 Seconds Gastrointestinal: Soft and benign, W/out hepatosplenomegaly Musculoskeletal: No clubbing, No swelling Integumentary: No rashes Neurological: Other (Alert,Awake ) Lymphatics: No axilla or inguinal lymphadenopathy Assessment & Plan Physician Review: Patient Assessed, Agree with Above Assessment and Plan Physician Review Additional Text: Assessment and plan Hypovolemic shock, Metabolic acidosis, resolved ARF (acute renal failure) secondary to hypovolemia / enteritis Enteritis Aspiration pneumonia Hypomagnesemia, Hypokalemia Rhabdomyolysis Polycystic kidney disease s/p renal transplant Hyperkalemia Hyponatremia for 1-2 days last week, refused IV antibiotics, switched to p.o., patient refused PO antibiotics days ago as well, now taking them; remains afebrile diarrhea resolved ~3-4 days ago now with nausea, and dry-heaving - states this is chronic since having renal transplant, he takes zofran or phenergan at home when this happens. helps to take one ~30min before he plans to eat UA suggested the presence of UTI, however Urine culture: No growth. Nephrology following, renal function improving. Diet as tolerated. replacing electrolytes - difficult to maintain normalize magnesium levels. He requested for transfer to [facility] but transfer was denied. Hyperkalemia -patient initially refused insulin, D50 and Kayexalate this morning. He took the insulin and D50. -Veltassa if available. -repeat potassium level this afternoon. -nephrology to follow Hypomagnesemia, Hypokalemia HypoMg: likely GI loss and renal loss given patient's initial presentation, however reports diarrhea has improved - yet despite lower GI loss, Mg remains low Significantly elevated PTH, low Vit D, normal calcium levels (Corrected for hypoalbuminemia) - concerning for secondary hyperparathyroidism - possibly from intestinal malabsorption / ARF Paranoia/Psychosis Psychiatry consulted for paranoia PICC placed on 07/20 PT/OT - recommend wheelchair, patient lives alone, agreeable to SNF Hyperkalemia noted at 5.9 Will give Kayexalate and antihyperlkalemic measures Discussed in detail with the patient will get a BMP in a.m. Discusses case management Awaiting placement to a [facility] Possible Dc to SNF once electrolytes are better and placement surgery Time Spent Managing Pts Care (In Minutes): 39
--- NOTE | 2020-07-25 17:49 | PN ---
Date of Progress Note: 07/25/2020 Subjective: The patient was admitted with UTI. The patient had kidney transplant. Has depleted sodium. Has depleted potassium, magnesium, and phosphorus after treatment and placed on amiloride. The patient started developing hyperkalemia. All supplement and amiloride have been discontinued. The patient started on hydration. Physical Examination: Vital Signs: Blood pressure 129/66, pulse of 81, afebrile. Chest: Clear to auscultation. Heart: S1, S2. Regular. Abdomen: Soft, nontender. Extremity: No edema. Neuro: Alert. Mildly confused. Pleasant. No tremor. Laboratory Data: WBC 4.1, H and H 11.4/34.8. Sodium 132, potassium 5.9, bicarb 20, BUN 18, creatinine 1.3, GFR of 53, calcium 8.1, phosphorus 2.1, magnesium 1.5. Current Medications: The patient on include atorvastatin, Zofran, Pepcid, Prograf, Cellcept. Assessment And Plan: 1. Chronic kidney disease, stage 5, status post kidney transplant, stable. We will continue to monitor. Continue current medications. 2. Hyperkalemia. Discontinue all supplement. Start the patient on bolus of normal saline, then we will diurese. I do not agree with giving Kayexalate, give albuterol and D50 with insulin. We will follow up. 3. Hypertension, controlled, optimal. Continue current treatment. 4. urinary tract infection, resolved. Continue current antibiotic. Time spent discussing with the patient, examining the patient, exam [id number], placing order, discussing with staff and other consulting include Primary 45 minutes. RYAN Voice ID: [id number] Report ID: [id number] FÉLIX
[2020-07-25] MEDS: FAMOTIDINE 20 MG TAB PO SCH (21:11)
[2020-07-26] MEDS: metroNIDAZOLE 500 MG TABLET PO SCH ×4 (00:26→18:00)
[2020-07-26] MEDS: NA CHLORIDE 0.9% 1,000 ML IV SCH (04:00)
[2020-07-26 06:42] LABS: Absolute Lymphocytes (CBC) 0.9 K/uL (0.7-4.9); Basophils % 0.3 % (0-1.3); Hematocrit 32.2 % (39.6-49.0); Lymphocytes % 27.9 % (15.3-44.8); MPV 8.1 fL (7.6-11.3); RBC Red Blood Cell Count 4.06 M/uL (4.33-5.43)
[2020-07-26 06:49] LABS: Magnesium 1.5 mg/dL (1.8-2.4); Phosphorus 1.8 mg/dL (2.5-4.9)
[2020-07-26 07:37] LABS: Blood Morphology Comment NOT SEEN (NOT SEEN); Platelet Estimate DECR
[2020-07-26 08:12] LABS: Potassium 5.1 mmol/L (3.5-5.1)
[2020-07-26] MEDS: MAGNESIUM OXIDE 400 MG TAB PO SCH (09:00)
[2020-07-26] MEDS ORDERED: Magnesium Sulfate 2gm IVPB 2 G/50 ML BAG IV ONE (09:00)
[2020-07-26] MEDS: HEPARIN 5000 UNIT/ML 1 ML VIAL SQ SCH (09:00)
[2020-07-26] MEDS: METOPROLOL TAR 50 MG TAB PO SCH (09:53)
[2020-07-26] MEDS: CALCITROL 0.25 MCG CAP PO SCH (09:53)
[2020-07-26] MEDS: levoFLOXacin 500 MG TAB PO SCH (09:54)
[2020-07-26] MEDS: SODIUM BICARB 325 MG TAB PO SCH ×2 (09:54→14:00)
[2020-07-26] MEDS: ATORVASTATIN 20 MG TAB PO SCH (09:54)
[2020-07-26] MEDS: TACROLIMUS 0.5 MG PO SCH (09:55)
[2020-07-26] MEDS: CLOTRIMAZOLE 10 MG TROCHE PO SCH ×3 (09:55→17:00)
[2020-07-26] MEDS: ONDANSETRON 4 MG/2 ML VIAL IV PRN (10:03)
[2020-07-26 10:50] VITALS: O2SAT 93
--- NOTE | 2020-07-26 14:03 | PN ---
Date of Progress Note: 07/26/2020 Subjective: The patient was admitted with acute kidney injury, colitis, and UTI. The patient had hypokalemia, then hyperkalemia, hypomagnesemia. The patient refused treatment. Objective: Vital Signs: Blood pressure 121/64, pulse of 86, afebrile. Chest: Clear to auscultation. Heart: S1 and S2. Systolic murmur. Abdomen: Soft, nontender. Extremities: No edema. Neuro: Alert, confused. No focality. Laboratory Data: WBC 3.1, H and H 10.3/32.2, platelet 107. Sodium 136, potassium 5.1, bicarb 19, BUN 15, creatinine 1.2, calcium 7.4, phos 1.8, magnesium 1.5. Current Medications: The patient on it's include: 1. Levaquin. 2. Metronidazole 500. 3. Heparin. 4. Calcium gluconate. 5. Metoprolol 50 b.i.d. 6. Pepcid. 7. CellCept 500 b.i.d. 8. Prograf. Assessment/plan: 1. Chronic kidney disease stage 5, status post diseased-donor kidney transplant, status post acute kidney injury, back to baseline. I am going to continue current immunosuppressive treatment. 2. Hyperkalemia, resolved. 3. Hypomagnesemia and hypophosphatemia. We will supplement. The patient refused any treatment. 4. Colitis. Continue current antibiotic, dose appropriate. Time spent discussing with the patient, examining the patient, exam [id number], placing order, discussing with staff and other consulting include Primary 45 minutes. RYAN Voice ID: [id number] Report ID: [id number] FÉLIX
[2020-07-26] MEDS ORDERED: ALBUTEROL 2.5 MG/3 ML NEB SOL NEB PRN (15:09)
--- NOTE | 2020-07-26 15:16 | P.DS ---
Admission Date: 07/13/20 Discharge Date: 07/26/20 Disposition: TRANSFER TO ASSISTED Discharge Condition: FAIR Reason for Admission: weakness Consultations: Nephrology-Dr. Haskins - Problems (1) Hypovolemic shock Current Visit: Yes Status: Resolved (2) ARF (acute renal failure) Current Visit: Yes Status: Acute (3) Enteritis Current Visit: Yes Status: Acute (4) Kidney transplant complication Current Visit: Yes Status: Acute (5) Metabolic acidosis Current Visit: Yes Status: Resolved (6) Aspiration pneumonia Current Visit: Yes Status: Acute (7) Polycystic kidney disease Current Visit: Yes Status: Acute Brief History of Present Illness: 60-year-old gentleman with a history of end-stage renal disease, status post kidney transplant which was done at [facility] was brought to the emergency department because patient was found on the floor and reported to have fallen. His creatinine in the ED was elevated to 4.5, baseline is unknown. CK level 4000. CT abdomen showed mild antritis and small bilateral lung infiltrate. An attempt was made for patient to be transferred to [facility] to be seen by his kidney transplant specialist but patient could not be transferred due to no bed availability. Patient admitted for further management.. Hospital Course: Patient admitted to the medical floor and hydrated with IV normal saline, treated for metabolic acidosis with bicarb drip and oral bicarb replacement. Patient was seen and evaluated by nephrology-Dr. Haskins who assisted with management. He was treated with IV antibiotics for pneumonia. He was also treated with antibiotics for gastroenteritis. His stool for C. diff was negative. Stool culture grew Staph aureus which is sensitive to Levaquin. His UA suggested the presence of UTI but his urine culture yielded no growth. Patient was treated with Levaquin for several days. Regarding acute renal failure, patient serum creatinine improved to normal with IV hydration. Acute renal failure got resolved. Patient was hypokalemic and hyperkalemia at some. He received potassium supplementation, and then later given Kayexalate, IV Lasix, insulin and dextrose for hyperkalemia. Patient has clinically improved. He did experienced bouts of nausea and vomits which per patient is chronic. There is a report of noncompliance with his transplant medications. His immunosuppressive medications which included mycophenolate and tacrolimus were resumed during the hospital stay. Patient seen by PT, was able to sit at the edge of the bed. Physical therapy was limited by feeling of nausea and vomiting. Skilled rehab recommended. Patient deemed clinically stable for discharge per nephrology. He has been accepted for transfer to skilled nursing today. Vital Signs/Physical Exam: Temp Pulse Resp BP Pulse Ox 96.9 F 86 16 121/64 98 07/26/20 12:00 07/26/20 12:00 07/26/20 12:00 07/26/20 12:00 07/26/20 12:00 General: Alert, In no apparent distress, Oriented x3 HEENT: Mucous membr. moist/pink Neck: Supple, JVD not distended Respiratory: Clear to auscultation bilaterally, Normal air movement Cardiovascular: No edema, Regular rate/rhythm, Normal S1 S2 Gastrointestinal: Normal bowel sounds, Soft and benign, Non-distended, No tenderness Musculoskeletal: No swelling, No tenderness Integumentary: No rashes Neurological: Other (No focal motor deficit.) Laboratory Data at Discharge: WBC 3.10 K/uL (4.3-10.9) L D 07/26/20 06:30 Hgb 10.3 g/dL (13.6-17.9) L 07/26/20 06:30 Hct 32.2 % (39.6-49.0) L 07/26/20 06:30 Plt Count 107 K/uL (152-406) L 07/26/20 06:30 PT 18.5 SECONDS (9.5-12.5) H 07/13/20 14:45 INR 1.60 07/13/20 14:45 APTT 39.8 SECONDS (24.3-36.9) H 07/13/20 14:45 Sodium 136 mmol/L (136-145) 07/26/20 06:20 Potassium 5.1 mmol/L (3.5-5.1) 07/26/20 06:20 BUN 15 mg/dL (7-18) 07/26/20 06:20 Creatinine 1.24 mg/dL (0.55-1.3) 07/26/20 06:20 Glucose 88 mg/dL (74-106) 07/26/20 06:20 Uric Acid 8.2 mg/dL (3.5-7.2) H 07/19/20 05:40 Phosphorus 1.8 mg/dL (2.5-4.9) L 07/26/20 06:30 Magnesium 1.5 mg/dL (1.8-2.4) L 07/26/20 06:30 Total Bilirubin 1.0 mg/dL (0.2-1.0) 07/21/20 05:47 AST 28 U/L (15-37) 07/21/20 05:47 ALT 24 U/L (12-78) 07/21/20 05:47 Alkaline Phosphatase 66 U/L (45-117) 07/21/20 05:47 Amylase 112 U/L (25-115) 07/13/20 14:45 Lipase 192 U/L (73-393) 07/13/20 14:45 Home Medications: Atorvastatin Calcium [Lipitor*] 20 mg PO DAILY 07/15/20 Colchicine [Colcrys *] 0.6 mg PO BID PRN 07/15/20 Famotidine [Pepcid*] 20 mg PO BEDTIME 07/15/20 Metoprolol Succinate [Toprol Xl*] 50 mg PO DAILY 07/15/20 Tacrolimus [Astagraf Xl] 0.5 mg PO BID 07/15/20 mycophenolate mofetiL [Mycophenolate Mofetil] 500 mg PO BID 07/15/20 Calcitrol [Rocaltrol*] 0.5 mcg PO DAILY #0 cap 07/26/20 Clotrimazole [Mycelex Kimberlyn*] 10 mg PO QID #40 rosie 07/26/20 Magnesium Oxide [Magnesium] 400 mg PO BID #60 tablet 07/26/20 Na Bicarb Tab [Sodium Bicarb 325 MG Tab*] 650 mg PO TID tab 07/26/20 levoFLOXacin [Levaquin*] 500 mg PO DAILY #2 tab 07/26/20 metroNIDAZOLE [Flagyl*] 500 mg PO Q6HR #8 tablet 07/26/20 New Medications: metroNIDAZOLE [Flagyl*] 500 mg PO Q6HR #8 tablet levoFLOXacin [Levaquin*] 500 mg PO DAILY #2 tab Magnesium Oxide [Magnesium] 400 mg PO BID #60 tablet Clotrimazole [Mycelex Kimberlyn*] 10 mg PO QID #40 rosie Physician Discharge Instructions: Please follow up with your kidney transplant specialist at [facility] within 2-4 weeks. Diet: Renal (Low-potassium diet) Activity: Fall precautions Followup: Unknown,U [Primary Care Provider] - Time spent managing pt's care (in minutes): 38
[2020-07-26] MEDS ORDERED: LORAZEPAM 1 MG TABLET PO ONE (20:28)
[2020-07-26] MEDS ORDERED: LORazepam 2 MG/ML VIAL IM ONE (20:39)
[2020-07-26] MEDS ORDERED: LORazepam 2 MG/ML VIAL ONE (20:57)
[2020-07-26 23:56] VITALS: BP 142/86; TEMP 99.1
== END 2020-07-26 21:12 | DRG 698 ==
LOC: ER 11:48 → 2ND 22:56
PROVIDERS: ADMIT Internal Medicine; ATTEND Internal Medicine
PROC: 02HV33Z Insertion of Infusion Device into Superior Vena Cava, Percutaneous Approach (ICD-10-PCS; principal; 2020-07-20)
DX: T86.19 Other complication of kidney transplant (principal); J69.0 Pneumonitis due to inhalation of food and vomit; R57.1 Hypovolemic shock; G93.41 Metabolic encephalopathy; N18.6 End stage renal disease; N17.9 Acute kidney failure, unspecified; I12.0 Hypertensive chronic kidney disease with stage 5 chronic kidney disease or end stage renal disease; Q61.3 Polycystic kidney, unspecified; E87.2 Acidosis; M62.82 Rhabdomyolysis; N39.0 Urinary tract infection, site not specified; E87.1 Hypo-osmolality and hyponatremia; K52.9 Noninfective gastroenteritis and colitis, unspecified; E16.2 Hypoglycemia, unspecified; E87.6 Hypokalemia; E83.42 Hypomagnesemia; E83.39 Other disorders of phosphorus metabolism; I48.0 Paroxysmal atrial fibrillation; K21.9 Gastro-esophageal reflux disease without esophagitis; E78.5 Hyperlipidemia, unspecified; E86.0 Dehydration; F22 Delusional disorders; F29 Unspecified psychosis not due to a substance or known physiological condition; E87.5 Hyperkalemia; W18.30XA Fall on same level, unspecified, initial encounter; Z91.14 Patient's other noncompliance with medication regimen; Z60.2 Problems related to living alone; Z79.899 Other long term (current) drug therapy; Z20.822 Contact with and (suspected) exposure to COVID-19
CPT/HCPCS: 36415; 36569; 70450; 71045; 71250; 72125; 76770; 80048; 80053; 80069; 80076; 80197; 81003; 81015; 82150; 82248; 82435; 82550; 82553; 82570; 82652; 82947; 83605; 83690; 83735; 83970; 84100; 84132; 84145; 84156; 84300; 84443; 84484; 84550; 85025; 85610; 85730; 87040; 87045; 87046; 87077; 87086; 87088; 87177; 87186; 87209; 87324; 87449; 93005; 93306; 94640; 94760; 96365; 96366; 96375; 97110; 97112; 97116; 97161; 97530; 99285; J0610; J0692; J0696; J1644; J1720; J1940; J2405; J2550; J3010; J3475; J3480; J7030; J7040; J7050; J7120; U0002; U0003